=== PATIENT | male | born 1960 | race Caucasian/White ===

== ENCOUNTER 2018-03-01 09:10 | Emergency (ER) | payer OTHER, SELFPAY ==
[2018-03-01 09:11] VITALS: BP 153/96; PULSE 76; RESP 16; TEMP 36.6; O2SAT 95; BMI 26.4
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
[2018-03-01 09:43] LABS: Absolute Lymphocyte Count 1.25 X10^3/ul (0.83-4.51); Absolute Neutrophil Count 3.8 X10^3/uL (2.0-7.7); Basophil# 0.02 X10^3/uL; Basophil% 0.4 % (0-1); Eosinophil# 0.06 X10^3/uL; Eosinophils% 1.1 % (0-5); Hematocrit 43.6 % (40-54); Hemoglobin 14.6 g/dl (13.0-16.5); Lymphocyte # 1.25 X10^3/ul (4.0); Lymphocyte % 22.5 % (19-41); Mean Corp Hgb Conc 33.5 g/gl (32-36); Mean Corpuscular Hgb 29.1 pg (27.0-32.0); Mean Platelet Vol. 9.3 fl (6.2-12.0); Monocyte# 0.44 X10^3/uL; Monocyte% 7.9 % (0-10); Neutrophil # 3.76 X10^3/uL (2.7-7.7); Neutrophil % 67.7 % (47-70); Platelet Count 239 K/mm3 (150-450); RBC Distribution Width CV 12.1 % (11.6-14.6); RBC Distribution Width SD 38.1 fl (35.1-43.9); Red Blood Count 5.01 M/mm3 (4.6-6.2); White Blood Count 5.6 K/mm3 (4.4-11.0)
[2018-03-01 09:44] LABS: POSITIVE COUNT NO; POSITIVE DIFFERENTIAL NO; POSITIVE MORPHOLOGY NO
[2018-03-01 09:56] LABS: ALB/GLOB Ratio 1.1 RATIO (0.9-2.4); AST(SGOT) 22 U/L (15-37); Alanine Aminotransfer ALT/SGPT 46 U/L (16-61); Albumin, Serum 3.3 g/dL (3.2-5.0); Alkaline Phosphatase 85 U/L (45-117); Anion Gap 5 (5-15); BUN 18 mg/dL (7-18); BUN/Creat Ratio 18.5 RATIO (10-20); Calcium,Total 8.1 mg/dL (8.5-10.1); Chloride 109 mmol/L (98-107); Creatinine, Serum 0.97 mg/dL (0.70-1.30); EST Glomerular Filtration Rate 85 mL/min (>60); Est Glom Filt Rate - Afr Amer 102 mL/min (>60); Estimated Creatinine Clearance 92.22 ml/min; Globulin 3.1 g/dL (2.2-4.2); Glucose 111 mg/dL (74-106); Potassium 4.3 mmol/L (3.5-5.1); Protein, Total 6.4 g/dL (6.4-8.2); Sodium Level 141 mmol/L (136-145)
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
--- NOTE | 2018-03-01 10:06 | ED.RN ---
HOLDING MONITOR PLACEMENT FOR C-SPINE CLEARANCE, DR TUCKER.
[2018-03-01] MEDS: Ondansetron 4 MG/2 ML Vial IV (10:07)
[2018-03-01] MEDS: Morphine 4 MG/ML Syringe IV (10:07)
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
[2018-03-01 11:28] VITALS: BP 133/87; PULSE 69; RESP 16; O2SAT 97
--- NOTE | 2018-03-01 11:45 | NURSING ---
[place] [address] BED 11 REPORT [phone]
[2018-03-01 11:50] VITALS: BP 136/81; PULSE 72; RESP 11; O2SAT 99
--- NOTE | 2018-03-01 11:56 | NURSING ---
CALLED [facility] FOR TRANSPORT
[2018-03-01 12:42] VITALS: BP 133/77; PULSE 69; RESP 18; O2SAT 98
--- OUTSIDE RECORDS SUMMARY | 2018-04-26 13:34 | XMS RPT_ITS ---
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 severe left and moderate right-sided foraminal narrowing is noted. 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 There is superimposed degenerative disc disease at C3/C4 and C4/C5 which causes flattening of the ventral cord. Signal abnormality somewhat centrally within the cord, to the right and left and midline as detailed above, which may be related to the patient's recent traumatic event. These are at and slightly below levels of degenerative disc disease with significant central canal stenosis. Small amount of fluid anterior to the C3/C4 and C7/T1 vertebral bodies. Posterior paraspinal soft tissue edema is also present from C2 to C4. No acute fracture is demonstrated. Report Dictated on --- Final --- Dictated: 03/02/2018 12:45 pm Dictating Physician: MD ALVAREZ KRIKOR Signed Date and Time: 03/02/2018 1:10 pm Signed by: MD ALVAREZ KRIKOR Transcribed Date and Time: 03/02/2018 12:45 Xr Chest Portable Result Date: 03/02/2018 Patient Name: AYO BUNDY ---Diagnostic Radiology--- Exam Date/Time 03/02/2018 17:06:35 EST Exam CR Chest Portable Ordering Physician VANESA ROBLERO JULIE Accession Number [id number] CPT4 Codes 77762 () Reason For Exam pneumonia Report PORTABLE CHEST CLINICAL INDICATION: Pneumonia TECHNIQUE: Portable AP COMPARISON: None FINDINGS: No focal consolidation or pulmonary edema. No pleural effusions or pneumothorax. The cardiac and mediastinal silhouettes are normal. The osseous structures are unremarkable. IMPRESSION: No focal consolidation or pulmonary edema. Report Dictated on --- Final --- Dictated: 03/02/2018 5:21 pm Dictating Physician: MD CALDWELL KEVIN Signed Date and Time: 03/02/2018 5:29 pm Signed by: MD CALDWELL KEVIN Transcribed Date and Time: 03/02/2018 5:21 Vl Dup Lower Extremity Venous Bilateral Result Date: 03/05/2018 [facility] Lower Extremity Venous Duplex Report Patient Name: Ayo Bundy : 1960 Study Date: 03/05/2018 T (58yrs) Age: 58 Account: [id number] Gender: M Loc: 1332 BP: Ordering: Veena Earl Technologist: Ordering Physician: Veena Earl Ski Production Supervisor: Veena Nj RVT Interpreting Physician: Hema Aguilera MD Location: [facility] INDICATIONS: Edema. CONCLUSIONS 1. This is a normal study. IMPRESSIONS: - The superficial and deep systems of the bilateral lower extremities appear to be free of thrombus. - This is a normal study. STUDY DATA: Complete lower extremity venous duplex evaluation. Birthdate: Patient birthdate: 1960. Age: Patient is 58 yr old. Sex: Gender: male. Ethnicity: Ethnicity: white. Doppler flow study including spectral analysis, color and oliva scale imaging. Patient status: Inpatient. Procedure: A vascular evaluation was performed. The images were obtained using a Vysr E9 vascular ultrasound machine. The study was technically limited due to hardware and cast. VENOUS FLOW AND IMAGING: + + + + !Location !Overall !Flow properties ! + + + + !Right common femoral !Patent !Normal phasicity; spontaneous; ! ! ! !normal augmentation; ! ! !!compressible ! + + + + !Right saphenofemoral !Patent !Compressible ! !junction ! ! ! + + + + !Right profunda femoral !Patent !Normal phasicity; spontaneous; ! ! ! !normal augmentation ! + + + + !R femoral proximal !Patent !Compressible ! + + + + !R femoral mid !Patent !Normal phasicity; spontaneous; ! ! ! !normal augmentation; ! ! !!compressible ! + + + + !R femoral distal !Patent !Compressible ! + + + + !Right popliteal !Patent !Normal phasicity; spontaneous; ! ! ! !normal augmentation; ! ! !!compressible ! + + + + !Right gastrocnemius !Patent !Compressible ! + + + + !Right posterior tibial !Patent !Compressible ! + + + + !Right peroneal !Patent !Compressible ! + + + + !Right soleal !Patent !Compressible ! + + + + !Right greater saphenous !Patent !Compressible ! + + + + !Left common femoral !Patent !Normal phasicity; spontaneous; ! ! ! !normal augmentation; ! ! !!compressible ! + + + + !Left saphenofemoral junction!Patent !Compressible ! + + + + !Left profunda femoral !Patent !Normal phasicity; spontaneous; ! ! ! !normal augmentation ! + + + + !L femoral proximal !Patent !Compressible ! + + + + !L femoral mid !Patent !Normal phasicity; spontaneous; ! ! ! !normal augmentation; ! ! !!compressible ! + + + + !L femoral distal !Difficult ! ! ! !study ! ! + + + + !Left popliteal !Difficult ! ! ! !study ! ! + + + + !Left gastrocnemius !Difficult ! ! ! !study ! ! + + + + !Left posterior tibial !Difficult ! ! ! !study ! ! + + + + !Left peroneal !Difficult ! ! ! !study ! ! + + + + !Left soleal !Difficult ! ! ! !study ! ! + + + + !Left greater saphenous !Patent !Compressible ! + + + + Electronically signed by: Hema Aguilera MD [id number] Ct Lower Extremity Left Wo Contrast Result Date: 03/01/2018 Patient Name: AYO BUNDY ---CT--- Exam Date/Time 03/01/2018 21:06:[address] Low Ext w/o Contrast Left Ordering Physician ORA DODSON Accession Number [id number] CPT4 Codes 44083 () Reason For Exam evaluate for possible L distal femur fx. please include femur and knee. Report CT Low Ext w/o Contrast Left CLINICAL INDICATION: evaluate for possible L distal femur fx. please include femur and knee. TECHNIQUE: CT scan of the left femur without contrast. Multiplanar reformations. I personally generated 3-D reconstructions on a separate workstation. COMPARISON: X-ray from 03/01/2018 FINDINGS: There is an oblique fracture involving distal femoral shaft and femoral metadiaphysis. This is nondisplaced, and extends to the knee joint space, just lateral to the intercondylar notch. No significant joint space incongruity. Minor spurring of the patellofemoral joint. There is a moderate-sized hemarthrosis. Knee joint osteoarthrosis, severe in the medial compartment and mild to moderate in the lateral compartment. Mild patellofemoral spurring. IMPRESSION: 1. Distal femoral shaft fracture extending to the knee joint space. Knee joint hemarthrosis. 2. Knee joint osteoarthrosis, severe in the medial compartment and mild to moderate in the lateral compartment. Report Dictated on --- Final --- Dictated: 03/01/2018 9:27 pm Dictating Physician: MD LOPEZ JOHN R Signed Date and Time: 03/01/2018 9:33 pm Signed by: MD LOPEZ JOHN R Transcribed Date and Time: 03/01/2018 9:27 Xr Wrist Left 3 Vw Result Date: 03/01/2018 Patient Name: AYO BUNDY ---Diagnostic Radiology--- Exam Date/Time 03/01/2018 17:51:35 EST Exam CR Wrist Complete 3 Views Left Ordering Physician MD MCCARTY ADAM Accession Number [id number] CPT4 Codes 21399 () Reason For Exam pain Report LEFT HAND AND WRIST: CLINICAL INDICATION: Left hand and wrist pain. TECHNIQUE: PA, Lat, and oblique hand and PA, Lat and oblique wrist COMPARISON: None. FINDINGS: There is internal fixation of the distal radius with plate and screws. There is no acute fracture or dislocation. Carpal arcs are aligned. There are degenerative changes about the distal interphalangeal joints, first carpometacarpal joint, and radiocarpal joint. No bone lesion is identified. There is no soft tissue abnormality. IMPRESSION: Normal left hand and wrist Report Dictated on --- Final --- Dictated: 03/01/2018 5:57 pm Dictating Physician: MD CALDWELL KEVIN Signed Date and Time: 03/01/2018 5:59 pm Signed by: MD CALDWELL KEVIN Transcribed Date and Time: 03/01/2018 5:57 Xr Wrist Right 3 Vw Result Date: 03/01/2018 Patient Name: AYO BUNDY ---Diagnostic Radiology--- Exam Date/Time 03/01/2018 17:51:35 EST Exam CR Wrist Complete 3 Views Right Ordering Physician MD MCCARTY ADAM Accession Number [id number] CPT4 Codes 47986 () Reason For Exam pain Report RIGHT HAND AND WRIST: CLINICAL INDICATION: Right hand and wrist pain. TECHNIQUE: PA, Lat, and oblique hand and PA, Lat and oblique wrist COMPARISON: None. FINDINGS: There is no fracture or dislocation. Degenerative changes of the distal interphalangeal joints, first carpometacarpal joint, and radiocarpal joint. No bone lesion is identified. There is no soft tissue abnormality. Peripheral intravenous catheter noted. IMPRESSION: No fracture or dislocation. Report Dictated on --- Final --- Dictated: 03/01/2018 6:02 pm Dictating Physician: MD CALDWELL KEVIN Signed Date and Time: 03/01/2018 6:04 pm Signed by: MD CALDWELL KEVIN Transcribed Date and Time: 03/01/2018 6:02 Incidental Findings: none Pending Test Results and Tests to Obtain as Outpatient: PT/OT Bladder training at rehab Disposition: He was discharged to [facility] in stable condition on 03/07/2018. Discharge Medications: He did not have significant changes to their home medications (see below) Medication List START taking these medications aluminum & magnesium hydroxide-simethicone 200-200-20 MG/5ML Susp suspension Commonly known as: MAALOX Take 30 mLs by mouth every 6 hours as needed for Indigestion bisacodyl 10 MG suppository Commonly known as: DULCOLAX Place 1 suppository rectally daily as needed for Constipation diphenhydrAMINE-zinc acetate 1-0.1 % cream Commonly known as: BENADRYL Apply topically 3 times daily as needed. docusate 100 MG Caps Commonly known as: COLACE, DULCOLAX Take 100 mg by mouth 2 times daily enoxaparin 30 MG/0.3ML injection Commonly known as: LOVENOX Inject 0.3 mLs into the skin 2 times daily melatonin 1 MG tablet Take 1 tablet by mouth nightly as needed for Sleep methocarbamol 500 MG tablet Commonly known as: ROBAXIN Take 2 tablets by mouth 4 times daily for 10 days polyethylene glycol packet Commonly known as: GLYCOLAX Take 17 g by mouth daily senna 8.6 MG tablet Commonly known as: SENOKOT Take 1 tablet by mouth nightly simethicone 80 MG chewable tablet Commonly known as: MYLICON Take 1 tablet by mouth every 6 hours as needed for Flatulence tamsulosin 0.4 MG capsule Commonly known as: FLOMAX Take 1 capsule by mouth daily CHANGE how you take these medications lisinopril 10 MG tablet Commonly known as: PRINIVIL;ZESTRIL What changed: Another medication with the same name was removed. Continue taking this medication, and follow the directions you see here. ASK your doctor about these medications oxyCODONE 5 MG immediate release tablet Commonly known as: ROXICODONE Take 1 tablet by mouth every 6 hours as needed for Pain for up to 7 days.. Ask about: Should I take this medication? Where to Get Your Medications You can get these medications from any pharmacy Bring a paper prescription for each of these medications ? oxyCODONE 5 MG immediate release tablet Information about where to get these medications is not yet available Ask your nurse or doctor about these medications ? aluminum & magnesium hydroxide-simethicone 200-200-20 MG/5ML Susp suspension ? bisacodyl 10 MG suppository ? diphenhydrAMINE-zinc acetate 1-0.1 % cream ? docusate 100 MG Caps ? enoxaparin 30 MG/0.3ML injection ? melatonin 1 MG tablet ? methocarbamol 500 MG tablet ? polyethylene glycol packet ? senna 8.6 MG tablet ? simethicone 80 MG chewable tablet ? tamsulosin 0.4 MG capsule Discharge Condition: Physical Exam at the time of discharge: Please refer to the Progress note on day of discharge for a detailed exam. At the time of discharge the patient is stable. Discharge Instructions: Activity: no working or driving until follow up with [facility] Diet: regular diet Discharge needs: PT/OT The patient's OARRS report was obtained and reviewed by myself on 03/07/2018. Discharge Instructions Provided: You have been diagnosed with a concussion. Upon discharge you can expect post-concussion symptoms. These include but are not limited to: - Thinking/remembering - difficulty thinking clearly, remembering new info, and concentrating - Physical - headache, blurry vision, dizziness, sensitivity to light and noises, feeling tired, balance problems - Emotional, mood - irritability, sadness, emotional, nervous or anxiety - Sleep - sleeping more than usual, sleep less then usual, trouble falling asleep To feel better: - Get plenty of sleep at night, and take it easy during the day - Avoid physically demanding activities or those that require a lot of concentration - Do not drive, operate heavy equipment until cleared by your doctor - Do not drink alcohol While taking narcotic medications be sure to: Not operate heavy machinery Do not drive while taking narcotic medication Return to the emergency department if: You are very drowsy. Your speech is slurred. You have trouble thinking, remembering things, or focusing. Contact your healthcare provider if: You want help or information on how to stop using or abusing narcotics. Follow up with your healthcare provider as directed: Write down your questions so you remember to ask them during your visits. Narcotic intoxication usually lasts for several hours. You may have the following during or after you use narcotics: Behavior or mood changes, such as a great feeling followed by the feeling that you do not care about anyone or anything Trouble thinking, remembering things, or focusing Small pupils Feeling very drowsy Slurred speech Narcotic withdrawal occurs if you stop using narcotics after using them heavily over a period of time. Signs and symptoms may begin within minutes or days and continue for days or even months: Depression and anxiety Nausea or vomiting Muscle aches Watery eyes or runny nose Large pupils Sweating or goosebumps on your skin Diarrhea Fever Trouble sleeping No working or driving until follow up with Trauma Clinic. Attestation: I spent 57 minutes on pt discharge. GLUCOSE,BEDSIDE Collected: 03/07/2018 Status: F Source: [facility] 11:06 AM SYSTEM REPOSITORY TYPE CODE TESTS RESULT OUT OF RANGE REFERENCE UNITS LAB BGLU 70-100 mg/dL High 120 Glucose,Beds lilian Result Comment: Test performed by glucose meter. Results may be 10%-15% lower than serum/plasma values. (CLIA ID [id number]) Performed By: #### BGLU #### [facility] [address] [place] [phone] HEMOGRAM W/ AUTODIFF Collected: 03/07/2018 Status: F Source: [facility] AG 1:26 AM SYSTEM REPOSITORY TYPE CODE TESTS RESULT OUT OF REFERENCE UNITS RANGE LAB IWBC 3.6-10.7 10*3/uL WBC Normal 6.5 LAB RBC 4.40-5.90 10*6/uL RBC Normal 4.55 LAB HGB 13.0-18.0 g/dL Hemoglobin Normal 13.5 LAB HCT 40.0-52.0 % Low Hematocrit 39.2 LAB MCV 80.0-98.0 fL MCV Normal 86.2 LAB MCH 26.0-34.0 pg MCH Normal 29.7 LAB MCHC 32.0-36.0 % MCHC Normal 34.5 LAB RDW 11.5-14.5 % RDW Normal 12.5 LAB PLT 140-440 10*3/uL Platelet Normal 261 LAB MPV 7.4-10.4 fL Low MPV 7.0 LAB GRAN% 40.0-80.0 % Granulocytes Normal 69.3 LAB LYMP% 20.0-40.0 % Low Lymphocytes 19.3 LAB MONO% 2.0-10.0 % Monocytes Normal 8.9 LAB EOS% 1.0-6.0 % Eosinophils Normal 1.9 LAB BAS% 0.0-2.0 % Basophils Normal 0.6 LAB ANC 1.8-7.0 10*3/uL Abs Normal Neutrophile Cnt 4.5 LAB ALC 1.0-4.3 10*3/uL Abs Lymph Cnt Normal 1.3 LAB AMC 0.0-0.8 10*3/uL Abs Monocyte Normal Cnt 0.6 LAB AEC 0.0-0.5 10*3/uL Abs Eosin Cnt Normal 0.1 LAB ABC 0.0-0.2 10*3/uL Abs Baso Cnt Normal 0.0 Performed By: #### HEMDF #### [facility] [address] [place] [phone] HEMOGRAM W/ AUTODIFF Collected: 03/06/2018 Status: F Source: [facility] AG 4:29 AM SYSTEM REPOSITORY TYPE CODE TESTS RESULT OUT OF REFERENCE UNITS RANGE LAB IWBC 3.6-10.7 10*3/uL WBC Normal 5.5 LAB RBC 4.40-5.90 10*6/uL RBC Normal 4.57 LAB HGB 13.0-18.0 g/dL Hemoglobin Normal 13.6 LAB HCT 40.0-52.0 % Low Hematocrit 39.4 LAB MCV 80.0-98.0 fL MCV Normal 86.3 LAB MCH 26.0-34.0 pg MCH Normal 29.7 LAB MCHC 32.0-36.0 % MCHC Normal 34.4 LAB RDW 11.5-14.5 % RDW Normal 12.7 LAB PLT 140-440 10*3/uL Platelet Normal 277 LAB MPV 7.4-10.4 fL Low MPV 6.9 LAB GRAN% 40.0-80.0 % Granulocytes Normal 66.9 LAB LYMP% 20.0-40.0 % Lymphocytes Normal 21.0 LAB MONO% 2.0-10.0 % Monocytes Normal 9.2 LAB EOS% 1.0-6.0 % Eosinophils Normal 2.3 LAB BAS% 0.0-2.0 % Basophils Normal 0.6 LAB ANC 1.8-7.0 10*3/uL Abs Normal Neutrophile Cnt 3.7 LAB ALC 1.0-4.3 10*3/uL Abs Lymph Cnt Normal 1.1 LAB AMC 0.0-0.8 10*3/uL Abs Monocyte Normal Cnt 0.5 LAB AEC 0.0-0.5 10*3/uL Abs Eosin Cnt Normal 0.1 LAB ABC 0.0-0.2 10*3/uL Abs Baso Cnt Normal 0.0 Performed By: #### HEMDF #### [employer] [address] [id number] VL VENOUS DUPLEX US Observed: 03/05/2018 Status: F Source: [facility] AG LOWER EXT BILATERAL 7:07 AM SYSTEM REPOSITORY Patient Name: AYO BUNDY Ultrasound Exam Date/Time 03/05/2018 07:51:42 EST Exam VL Venous Duplex US Lower Ext Bilateral Ordering Physician VEENA EARL Accession Number [id number] CPT4 Codes 30335 () Reason For Exam edema Report [facility] --- Lower Extremity Venous Duplex Report Patient Name: Ayo Bundy : 1960 Study Date: 03/05/2018 T (58yrs) Age: 58 Account: [id number] Gender: M Loc: 1332 BP: Ordering: Veena Earl Technologist: Ordering Physician: Veena Earl Ski Production Supervisor: Veena Nj RVT Interpreting Physician: Hema Aguilera MD --- Location: [facility] --- INDICATIONS: Edema. --- CONCLUSIONS 1. This is a normal study. --- IMPRESSIONS: - The superficial and deep systems of the bilateral lower extremities appear to be free of thrombus. - This is a normal study. --- STUDY DATA: Complete lower extremity venous duplex evaluation. Birthdate: Patient birthdate: 1960. Age: Patient is 58 yr old. Sex: Gender: male. Ethnicity: Ethnicity: white. Doppler flow study including spectral analysis, color and oliva scale imaging. Patient status: Inpatient. Procedure: A vascular evaluation was performed. The images were obtained using a Vysr E9 vascular ultrasound machine. The study was technically limited due to hardware and cast. --- VENOUS FLOW AND IMAGING: + + + --+ !Location !Overall !Flow properties ! + + + --+ !Right common femoral !Patent !Normal phasicity; spontaneous; ! ! ! !normal augmentation; ! ! ! !compressible ! + + + --+ !Right saphenofemoral !Patent !Compressible ! !junction ! ! ! + + + --+ !Right profunda femoral !Patent !Normal phasicity; spontaneous; ! ! ! !normal augmentation ! + + + --+ !R femoral proximal !Patent !Compressible ! + + + --+ !R femoral mid !Patent !Normal phasicity; spontaneous; ! ! ! !normal augmentation; ! ! ! !compressible ! + + + --+ !R femoral distal !Patent !Compressible ! + + + --+ !Right popliteal !Patent !Normal phasicity; spontaneous; ! ! ! !normal augmentation; ! ! ! !compressible ! + + + --+ !Right gastrocnemius !Patent !Compressible ! + + + --+ !Right posterior tibial !Patent !Compressible ! + + + --+ !Right peroneal !Patent !Compressible ! + + + --+ !Right soleal !Patent !Compressible ! + + + --+ !Right greater saphenous !Patent !Compressible ! + + + --+ !Left common femoral !Patent !Normal phasicity; spontaneous; ! ! ! !normal augmentation; ! ! ! !compressible ! + + + --+ !Left saphenofemoral junction!Patent !Compressible ! + + + --+ !Left profunda femoral !Patent !Normal phasicity; spontaneous; ! ! ! !normal augmentation ! + + + --+ !L femoral proximal !Patent !Compressible ! + + + --+ !L femoral mid !Patent !Normal phasicity; spontaneous; ! ! ! !normal augmentation; ! ! ! !compressible ! + + + --+ !L femoral distal !Difficult ! --! ! !study ! ! + + + --+ !Left popliteal !Difficult ! --! ! !study ! ! + + + --+ !Left gastrocnemius !Difficult ! --! ! !study ! ! + + + --+ !Left posterior tibial !Difficult ! --! ! !study ! ! + + + --+ !Left peroneal !Difficult ! --! ! !study ! ! + + + --+ !Left soleal !Difficult ! --! ! !study ! ! + + + --+ !Left greater saphenous !Patent !Compressible ! + + + --+ Electronically signed by: Hema Aguilera MD [id number] Final Dictated: 03/05/2018 8:32 am Dictating Physician: HEMA AGUILERA Signed Date and Time: 03/05/2018 8:31 am Signed by: HEMA AGUILERA HEMOGRAM W/ AUTODIFF Collected: 03/05/2018 Status: F Source: [facility] AG 1:19 AM SYSTEM REPOSITORY TYPE CODE TESTS RESULT OUT OF REFERENCE UNITS RANGE LAB IWBC 3.6-10.7 10*3/uL WBC Normal 5.1 LAB RBC 4.40-5.90 10*6/uL Low RBC 4.33 LAB HGB 13.0-18.0 g/dL Low Hemoglobin 12.9 LAB HCT 40.0-52.0 % Low Hematocrit 37.3 LAB MCV 80.0-98.0 fL MCV Normal 86.2 LAB MCH 26.0-34.0 pg MCH Normal 29.8 LAB MCHC 32.0-36.0 % MCHC Normal 34.6 LAB RDW 11.5-14.5 % RDW Normal 12.5 LAB PLT 140-440 10*3/uL Platelet Normal 236 LAB MPV 7.4-10.4 fL Low MPV 7.3 LAB GRAN% 40.0-80.0 % Granulocytes Normal 64.7 LAB LYMP% 20.0-40.0 % Lymphocytes Normal 23.4 LAB MONO% 2.0-10.0 % Monocytes Normal 9.3 LAB EOS% 1.0-6.0 % Eosinophils Normal 1.9 LAB BAS% 0.0-2.0 % Basophils Normal 0.7 LAB ANC 1.8-7.0 10*3/uL Abs Normal Neutrophile Cnt 3.3 LAB ALC 1.0-4.3 10*3/uL Abs Lymph Cnt Normal 1.2 LAB AMC 0.0-0.8 10*3/uL Abs Monocyte Normal Cnt 0.5 LAB AEC 0.0-0.5 10*3/uL Abs Eosin Cnt Normal 0.1 LAB ABC 0.0-0.2 10*3/uL Abs Baso Cnt Normal 0.0 Performed By: #### HEMDF #### [facility] [address] [place] [phone] Observed: 03/04/2018 Status: F Source: [facility] CULTURE URINE 11:22 AM SYSTEM REPOSITORY Order Comment: Specimen Source Comment:Urine, clean catch CULTURE URINE --> Status: F No growth (<1,000 CFU/ml). Performed By: #### C/UR #### [facility] [address] [phone] HEMOGRAM W/ AUTODIFF Collected: 03/04/2018 Status: F Source: [facility] AG 2:28 AM SYSTEM REPOSITORY TYPE CODE TESTS RESULT OUT OF REFERENCE UNITS RANGE LAB IWBC 3.6-10.7 10*3/uL WBC Normal 5.9 LAB RBC 4.40-5.90 10*6/uL RBC Normal 4.45 LAB HGB 13.0-18.0 g/dL Hemoglobin Normal 13.3 LAB HCT 40.0-52.0 % Low Hematocrit 38.2 LAB MCV 80.0-98.0 fL MCV Normal 85.9 LAB MCH 26.0-34.0 pg MCH Normal 29.8 LAB MCHC 32.0-36.0 % MCHC Normal 34.7 LAB RDW 11.5-14.5 % RDW Normal 12.6 LAB PLT 140-440 10*3/uL Platelet Normal 207 LAB MPV 7.4-10.4 fL MPV Normal 7.6 LAB GRAN% 40.0-80.0 % Granulocytes Normal 74.2 LAB LYMP% 20.0-40.0 % Low Lymphocytes 16.4 LAB MONO% 2.0-10.0 % Monocytes Normal 7.5 LAB EOS% 1.0-6.0 % Eosinophils Normal 1.4 LAB BAS% 0.0-2.0 % Basophils Normal 0.5 LAB ANC 1.8-7.0 10*3/uL Abs Normal Neutrophile Cnt 4.3 LAB ALC 1.0-4.3 10*3/uL Abs Lymph Cnt Normal 1.0 LAB AMC 0.0-0.8 10*3/uL Abs Monocyte Normal Cnt 0.4 LAB AEC 0.0-0.5 10*3/uL Abs Eosin Cnt Normal 0.1 LAB ABC 0.0-0.2 10*3/uL Abs Baso Cnt Normal 0.0 Performed By: #### HEMDF, BMP3 #### [facility] [address] [place] [phone] BASIC METABOLIC PANEL Collected: 03/04/2018 Status: F Source: [facility] AG 2:28 AM SYSTEM REPOSITORY TYPE CODE TESTS RESULT OUT OF RANGE REFERENCE UNITS LAB NA3 137-145 mmol/L Sodium Normal 137 LAB K3 3.5-5.1 mmol/L Normal Potassium 3.9 LAB CL3 98-107 mmol/L Chloride Normal 102 LAB CO23 22-30 mmol/L Carbon Normal Dioxide 28 LAB ANIN3 NA Anion Gap 7 LAB GLUC3 70-100 mg/dL High Glucose 130 LAB BUN3 7-20 mg/dL Urea Normal Nitrogen 17 LAB CRET3 0.52-1.25 mg/dL Normal Creatinine 0.89 LAB GF3BR >60 mL/min eGFR > 60.0 LAB GF3WR >60 mL/min eGFR OTHER > 60.0 Result Comment: Source- MDRD equation with creatinine calibration to IDMS(NKDEP) eGFR not recommended for drug dose adjustment LAB CA3 8.4-10.4 mg/dL Low Calcium 8.2 Performed By: #### HEMDF, BMP3 #### [employer] [facility] System [address] [place] [id number] CR CHEST PORTABLE Observed: 03/02/2018 Status: F Source: [facility] 5:21 PM SYSTEM REPOSITORY Patient Name: AYO BUNDY Diagnostic Radiology Exam Date/Time 03/02/2018 17:06:35 EST Exam CR Chest Portable Ordering Physician VANESA ROBLERO JULIE Accession Number [id number] CPT4 Codes 30630 () Reason For Exam pneumonia Report PORTABLE CHEST CLINICAL INDICATION: Pneumonia TECHNIQUE: Portable AP COMPARISON: None FINDINGS: No focal consolidation or pulmonary edema. No pleural effusions or pneumothorax. The cardiac and mediastinal silhouettes are normal. The osseous structures are unremarkable. IMPRESSION: No focal consolidation or pulmonary edema. Report Dictated on Final Dictated: 03/02/2018 5:21 pm Dictating Physician: MD CALDWELL KEVIN Signed Date and Time: 03/02/2018 5:29 pm Signed by: MD CALDWELL KEVIN Transcribed Date and Time: 03/02/2018 5:21 MRI SPINE CERVICAL Observed: 03/02/2018 Status: F Source: [facility] W/O CONTRAST 12:45 PM SYSTEM REPOSITORY Patient Name: AYO BUNDY MRI Exam Date/Time 03/02/2018 12:23:21 EST Exam MRI Spine Cervical w/o Contrast Ordering Physician MD MCCARTY ADAM Accession Number [id number] CPT4 Codes 27374 () Reason For Exam central cord Report Examination: MRI cervical spine Indication: central cord Technique: Multiplanar multi-sequence MRI images of the cervical spine were obtained. Findings: Mild focal increased T2 signal is present within the central portion of the cord to the right and left and midline as demonstrated on axial image 13 of series 9. This is present just below the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
== END 2018-03-01 12:47 | disposition short-term general hospital (02) ==
PROVIDERS: Emergency Provider Emergency Medicine; Family Provider Family Medicine; PCP Family Medicine
DX: S14.109A Unspecified injury at unspecified level of cervical spinal cord, initial encounter (principal); S72.402A Unspecified fracture of lower end of left femur, initial encounter for closed fracture; R20.2 Paresthesia of skin; M25.571 Pain in right ankle and joints of right foot; M25.562 Pain in left knee; V43.52XA Car driver injured in collision with other type car in traffic accident, initial encounter; Y93.9 Activity, unspecified; Y92.9 Unspecified place or not applicable; Y99.9 Unspecified external cause status; I10 Essential (primary) hypertension; Z79.899 Other long term (current) drug therapy
CPT/HCPCS: 70450; 71260; 72125; 73552; 73560; 73610; 80053; 85025; 96374; 96375; 99285; Q9967; A4216; J2405

== ENCOUNTER 2018-03-07 17:20 | Inpatient (IN) | payer OTHER, SELFPAY ==
[2018-03-07 17:20] VITALS: BP 133/81; PULSE 85; RESP 18; TEMP 36.7; O2SAT 95
[2018-03-07 17:31] VITALS: BMI 26.0
--- NOTE | 2018-03-07 18:37 | NURSING ---
Patient aware he is a fall risk and must ask for staff assist and verbalized understanding.
[2018-03-07 20:05] VITALS: BP 130/80; PULSE 83; RESP 12; TEMP 37; O2SAT 94
[2018-03-07] MEDS: fentaNYL 25 MCG Patch TRANSDERM. (20:07)
[2018-03-07] MEDS: Polyethylene Glycol 3350 17 GM PACKET PO (21:29)
[2018-03-07] MEDS: Methocarbamol 500 MG Tablet 1000 MG PO (21:29)
[2018-03-07] MEDS: Acetaminophen 500 MG Tablet 1000 MG PO (21:29)
[2018-03-08] MEDS: oxyCODONE 5 MG Tablet PO ×2 (02:49→07:24)
[2018-03-08] MEDS: Acetaminophen 500 MG Tablet 1000 MG PO ×3 (05:11→22:40)
[2018-03-08] MEDS: Enoxaparin 40 MG/0.4 ML Syringe SC (05:12)
[2018-03-08] MEDS: Magnesium Hydroxide 30 ML UDC PO (05:13)
[2018-03-08 05:38] LABS: Hematocrit 40.4 % (40-54); Hemoglobin 13.5 g/dl (13.0-16.5); Mean Corp Hgb Conc 33.4 g/gl (32-36); Mean Corpuscular Hgb 29.5 pg (27.0-32.0); Mean Corpuscular Volume 88.2 fL (80-94); Mean Platelet Vol. 8.9 fl (6.2-12.0); Platelet Count 283 K/mm3 (150-450); RBC Distribution Width SD 37.9 fl (35.1-43.9); Red Blood Count 4.58 M/mm3 (4.6-6.2); White Blood Count 5.8 K/mm3 (4.4-11.0)
[2018-03-08 05:51] LABS: Scan Indicated on CBC? Y/N NO
[2018-03-08 05:57] LABS: ALB/GLOB Ratio 0.8 RATIO (0.9-2.4); AST(SGOT) 67 U/L (15-37); Alanine Aminotransfer ALT/SGPT 135 U/L (16-61); Alkaline Phosphatase 93 U/L (45-117); Anion Gap 8 (5-15); BUN 26 mg/dL (7-18); BUN/Creat Ratio 26.3 RATIO (10-20); Calcium,Total 8.4 mg/dL (8.5-10.1); Chloride 104 mmol/L (98-107); Creatinine, Serum 0.99 mg/dL (0.70-1.30); EST Glomerular Filtration Rate 83 mL/min (>60); Est Glom Filt Rate - Afr Amer 100 mL/min (>60); Estimated Creatinine Clearance 90.36 ml/min; Globulin 3.6 g/dL (2.2-4.2); Glucose 95 mg/dL (74-106); Magnesium 2.4 mg/dL (1.6-2.6); Phosphorus 3.9 mg/dL (2.5-4.9); Potassium 4.3 mmol/L (3.5-5.1); Protein, Total 6.6 g/dL (6.4-8.2); Sodium Level 139 mmol/L (136-145)
[2018-03-08 06:50] VITALS: O2SAT 91
[2018-03-08 08:11] VITALS: BP 116/63; PULSE 75; RESP 20; TEMP 36.8; O2SAT 95
--- NOTE | 2018-03-08 10:19 | NS ---
Pt would prefer Ensure Enlive strawberry flavor
[2018-03-08] MEDS: Polyethylene Glycol 3350 17 GM PACKET PO (10:43)
[2018-03-08] MEDS: Senna/Docusate Sodium 1 Tablet 2 TABLET PO (10:43)
[2018-03-08] MEDS: Lisinopril 10 MG Tablet PO (10:44)
[2018-03-08] MEDS: Methocarbamol 500 MG Tablet 1000 MG PO ×4 (10:44→22:40)
[2018-03-08] MEDS: Tamsulosin HCl 0.4 MG Capsule PO (10:44)
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
--- NOTE | 2018-03-08 12:27 | NURSING ---
pt awakened for lunch. stated, oh man i didnt expect to be this tired. denies any needs at this time. utensil foam placed and pt set up for lunch.
--- NOTE | 2018-03-08 13:26 | CASEMGMT ---
SW reviewed psychosocial assessment completed by Moe Deleon, student social work therapist. ANGLE Beckman
--- NOTE | 2018-03-08 14:06 | PCM.RU.PYE ---
Admission Information Status Changes from Prescreening?: No changes Identified Actual Problem List:: Mobility Impaired, Self Care Deficit Potential Problem List:: DVT, Bleeding, Infection, UTI, Aspiration, Falls, Skin Integrity, Depression Risk of Complications DVT: LMWH, SHUN Hose, Sequential Compression Device Bleeding: Monitor Lab Values, Nursing to Teach Precautions for anti-coagulation therapy., Wound, if applicable, to be assessed every shift., Stroke patients assessed for lethargy or change in status. Infection: Clinical Staff to Monitor for S/S of infection:, S/S of infection include fever, redness, warmth, etc. Urinary Tract Infection: Monitor for frequency, burning, discomfort, or incontinence., Nursing will obtain urine sample for urinalysis and C&S when ordered. Aspiration: Clinical staff will monitor for coughing, drooling, congestion., Speech will evaluate swallowing and dsyphasia., Nursing will monitor patient swallowing during meals. Falls: Patient will be evaluated for Fall Precautions, Patient will be placed on Fall Precautions as indicated per protocol. Skin Breakdown: Nursing will assess skin daily using assessment tool., Nursing will place on Skin Breakdown Precautions as indicated. Pain: Clinical staff will assess patient's pain level per protocol., Medications will be given, if needed, and the pain level reassessed., Other methods: Massage, distraction, decrease stimulus, etc. used PRN. Plan of Care Patient requires physician specializing in physical medicine and rehab oversight to provide close medical supervision of rehab issues including: Pain Management, Sleep Problems, Bowel and Bladder, Medical and co-morbidity Management, DVT prophylaxis, Rehabilitation Leadership, Coordination of treatment team Patient needs Physical Therapy: For a minimum of 1 hour, At least 5 out of 7 days Patient needs Physical Therapy to improve:: Mobility, Mobility, Mobility, Strengthening, Transfers, Stretching, ROM, Endurance, Stairs, Gait, Balance Patient needs Occupational Therapy: For a minimum of 1 hour, At least 5 out of 7 days Patient needs Occupational Therapy to improve ADL's incl.: Eating, Grooming, Bathing, Dressing, Toileting, Toilet transfers, Community Reintegration, Higher functioning activities, Household tasks, Adaptive Equipment, Splinting, Other activities as determined Patient requires 24/7 Rehabilitation Nursing for: Pain Issues, Identifying and preventing risk factors, Monitoring and reporting current medical conditions, Assisting with ambulation, transfer, and all ADL's, Teaching patients about disease process and medications, Family teaching, Providing safe environment, Bowel and Bladder Issues, Skin integrity, Medication Management Patient needs Assistant Portfolio Manager/ Case Management for: Discharge Planning, Arranging Home Equipment or Services, Family Interventions Patient needs Dietary and Nutrition Services for: Adequate Nutrition, Nutritional Supplements, Nutritional Education Goals Patient will remain: free from falls, or injury at time of discharge. Patient will perform bed mobility at: MOD I level of assist. Patient will complete transfers from bed to chair at: MOD I level of assist. Patient will ambulate: 100 feet, with MOD I assist, with LRD Patient will complete upper body dressing at: MOD I level of assist. Patient will complete lower body dressing at: MOD I level of assist. Patient will complete toileting at: MOD I level of assist. Patient will perform bathing at: MOD I level of assist. Patient will complete grooming at: MOD I level of assist. Patient will complete home management skills at: MOD I level of assist. Patient will achieve: 12 stairs, at MOD I assist Patient will have pain level of: of 3 or less Patient's skin will: remain intact, free from infection. Patient will receive: adequate nutrition. Discharge Planning Pt Prognosis for Sig. Practical Improv. w/in Reasonable Time: Good Estimated Length of stay (days): 16 Anticipated D/C Destination: Home Was Preadmission Assessment Accurate?: Yes
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
[2018-03-08 22:00] VITALS: BP 115/72; PULSE 77; RESP 17; TEMP 36.8; O2SAT 96
[2018-03-09] MEDS: Acetaminophen 500 MG Tablet 1000 MG PO ×3 (05:58→20:26)
[2018-03-09] MEDS: Enoxaparin 40 MG/0.4 ML Syringe SC (06:01)
[2018-03-09 07:00] VITALS: BP 118/68; PULSE 80; RESP 18; TEMP 36.7; O2SAT 96
[2018-03-09 07:14] VITALS: O2SAT 92
[2018-03-09] MEDS: oxyCODONE 5 MG Tablet PO (08:00)
[2018-03-09] MEDS: Methocarbamol 500 MG Tablet 1000 MG PO ×4 (09:10→20:26)
[2018-03-09] MEDS: Polyethylene Glycol 3350 17 GM PACKET PO ×2 (09:11→20:26)
[2018-03-09] MEDS: Tamsulosin HCl 0.4 MG Capsule PO (09:12)
[2018-03-09] MEDS: Lisinopril 10 MG Tablet PO (09:12)
[2018-03-09] MEDS: Senna/Docusate Sodium 1 Tablet 2 TABLET PO (09:13)
[2018-03-09 19:55] VITALS: BP 114/71; PULSE 85; RESP 16; TEMP 36.9
--- NOTE | 2018-03-09 20:23 | NURSING ---
c/o full bladder (even with lópez cath). Scanned for 517. Rerouted tubing, changed cath secure, lópez now draining adequately. PT states it feels better
[2018-03-10] MEDS: oxyCODONE 5 MG Tablet PO (05:15)
[2018-03-10] MEDS: Enoxaparin 40 MG/0.4 ML Syringe SC (05:15)
[2018-03-10] MEDS: Acetaminophen 500 MG Tablet 1000 MG PO ×3 (06:11→21:16)
[2018-03-10 07:53] VITALS: BP 126/70; PULSE 76; RESP 16; TEMP 36.8; O2SAT 95
[2018-03-10] MEDS: Lisinopril 10 MG Tablet PO (08:59)
[2018-03-10] MEDS: Senna/Docusate Sodium 1 Tablet 2 TABLET PO (08:59)
[2018-03-10] MEDS: Tamsulosin HCl 0.4 MG Capsule PO (08:59)
[2018-03-10] MEDS: Methocarbamol 500 MG Tablet 1000 MG PO ×4 (10:39→21:17)
[2018-03-10 21:09] VITALS: BP 118/60; PULSE 79; RESP 16; TEMP 36.6; O2SAT 98
[2018-03-10] MEDS: fentaNYL 25 MCG Patch TRANSDERM. (21:17)
[2018-03-11] MEDS: Enoxaparin 40 MG/0.4 ML Syringe SC (07:13)
[2018-03-11] MEDS: Acetaminophen 500 MG Tablet 1000 MG PO ×3 (07:14→20:50)
[2018-03-11 07:39] VITALS: BP 137/74; PULSE 74; RESP 14; TEMP 36.8; O2SAT 96
[2018-03-11] MEDS: Lisinopril 10 MG Tablet PO (08:53)
[2018-03-11] MEDS: Tamsulosin HCl 0.4 MG Capsule PO (08:53)
[2018-03-11] MEDS: Methocarbamol 500 MG Tablet 1000 MG PO ×4 (08:54→20:50)
[2018-03-11] MEDS: Senna/Docusate Sodium 1 Tablet 2 TABLET PO (08:55)
[2018-03-11 20:35] VITALS: BP 114/63; PULSE 82; RESP 12; TEMP 36.8; O2SAT 96
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
[2018-03-12] MEDS: Acetaminophen 500 MG Tablet 1000 MG PO ×3 (06:57→21:59)
[2018-03-12] MEDS: Enoxaparin 40 MG/0.4 ML Syringe SC (06:58)
[2018-03-12 07:50] VITALS: BP 139/78; PULSE 72; RESP 12; TEMP 36.6; O2SAT 97
[2018-03-12] MEDS: Tamsulosin HCl 0.4 MG Capsule PO (09:18)
[2018-03-12] MEDS: Lisinopril 10 MG Tablet PO (09:18)
[2018-03-12] MEDS: Methocarbamol 500 MG Tablet 1000 MG PO ×4 (09:18→21:59)
[2018-03-12] MEDS: Senna/Docusate Sodium 1 Tablet 2 TABLET PO (09:18)
--- NOTE | 2018-03-12 09:50 | CASEMGMT ---
Team meeting held. Patent present, no support person present at this time. Patient reporting to be able to update family/significant other. Patient plans to discharge to home with girlfriend at time of discharge. Patient reporting that patient girlfriend will not be able to provide 24hr care but that patient's girlfriends mother has offered to assist during the day when patient girlfriend is at work. Patient currently requiring more assistance then what could be met at home and plans to continue with further care and treatment. Plan is to re-team patient next week. Patient aware that insurance update is due on 03/13/18 and that continued stay approval is not guaranteed at this time. Support given. Will continue to follow. Vanessa Prescott, CONSTRUCTION COST ESTIMATOR, SENIOR CORPORATE RECRUITER
--- NOTE | 2018-03-12 13:59 | PCM.PN.NEU ---
Subjective: Staffed in team meeting. Family was not at bedside, questions answered. With Physical therapy, he is moderate assist for transfers getting in and out of bed, needing assistance with trunk control. With the sliding board he requires moderate assistance. He is able to go 50 feet using the wheelchair. He is moderate assist with standing in the parallel bars, and he is unable to hop using the bars 2/2 left hip fracture. With Occupational therapy,he has weak grasp in his hands and requires total assistance with getting his clothes on. With grooming he is setup, along with eating he is set up. He does require help with opening items. With Nursing, the Khan is still in place, will be d/c on Wednesday 03/14, his muscle spasms have improved and pain is well controlled. Will re-team him again on 03/19. - Physical Exam General: Alert, Oriented x3, Cooperative HEENT: Atraumatic, PERRLA, EOMI, Normocephalic Neck: Supple, No JVD, Negative Carotid Bruits Lungs: Clear to auscultation, Normal air movement Cardiovascular: Regular rate, No murmurs Abdomen: Bowel Sounds Present, Soft, Non Tender Extremities: No edema, Capillary Refill Less than 3 Seconds Skin: No rashes, No breakdown Musculoskeletal: No Tenderness to Palpation of Joints or Extremities Neurological: Cranial nerves II-XII grossly intact Psych/Mental Status: Normal Affect, Appropriate, Alert and oriented to time, place, person, mood and affect Vital Signs Temp Pulse Resp BP Pulse Ox 97.8 F 72 12 139/78 H 97 03/12/18 07:50 03/12/18 07:50 03/12/18 07:50 03/12/18 07:50 03/12/18 07:50 Oxygen Delivery Method Room Air Weight: 87.09 kg Body Mass Index (BMI) 26.0 Intake and Output for Last 24 Hours 03/10/18 03/11/18 03/12/18 23:59 23:59 23:59 Intake Total 700 / 700 1420 / 1420 550 / 550 Output Total 1250 / 1250 1950 / 1950 1150 / 1150 Balance -550 / -550 -530 / -530 -600 / -600 Active Medications Acetaminophen (Tylenol) 1,000 mg PO TID [facility] Last Admin: 03/12/18 13:35 Dose: 1,000 mg Al Hydroxide/Mg Hydroxide (Mylanta Ii) 30 ml PO Q6H PRN PRN PRN Reason: INDIGESTION Bisacodyl (Dulcolax) 10 mg RECTAL .PRN X 1 PRN PRN Reason: Constipation Enoxaparin Sodium (Lovenox) 40 mg SC DAILY@0600 [facility] Last Admin: 03/12/18 06:58 Dose: 40 mg Fentanyl (Duragesic Patch) 25 mcg TRANSDERM. Q3D [facility] Last Admin: 03/10/18 21:17 Dose: 25 mcg Lisinopril (Zestril) 10 mg PO DAILY [facility] Last Admin: 03/12/18 09:18 Dose: 10 mg Magnesium Hydroxide (Milk Of Magnesia) 30 ml PO .PRN X 1 PRN PRN Reason: Constipation Last Admin: 03/08/18 05:13 Dose: 30 ml Methocarbamol (Robaxin) 1,000 mg PO 4X/DAY [facility] Last Admin: 03/12/18 13:35 Dose: 1,000 mg Nutritional Formula (Lactose Free) (Ensure Clear) 120 ml PO 4X/DAY [facility] Last Admin: 03/12/18 13:35 Dose: Not Given Oxycodone HCl (Oxyir) 5 - 10 mg PO Q4H PRN PRN PRN Reason: PAIN Last Admin: 03/10/18 05:15 Dose: 10 mg Polyethylene Glycol (Miralax) 17 gm PO BID [facility] Last Admin: 03/12/18 09:17 Dose: Not Given Senna/Docusate Sodium (Senokot-S, Soha-Colace) 2 tablet PO DAILY [facility] Last Admin: 03/12/18 09:18 Dose: 2 tablet Tamsulosin HCl (Flomax) 0.4 mg PO DAILY [facility] Last Admin: 03/12/18 09:18 Dose: 0.4 mg Medical Necessity - Tobacco Use Smoking Status: Never smoker Assessment/Plan Debility 2/2 central cord syndrome, and a Left femur fracture. Goal of rehab is yazidi of prior level of functional independence. Plan: - Physical therapy for gait and balance - Occupational Therapy for ADLs - As needed analgesics - Bowel protocol - DVT prophylaxis: Lovenox, SCD on right leg only - HLD - Currently not on medication - HTN - stable => continue home medications of lisinopril - Left femur fracture - Maintain knee immobilizer at all times. - Urine retention, failed voiding trail at OSH transferred to [facility] with Khan in place. Remove per admission orders with voiding trial x 2 weeks. - Central Cord syndrome - maintain [place] J collar at all times
--- NOTE | 2018-03-12 14:11 | PN.NEURO_ITS ---
Subjective: Staffed in team meeting. Family was not at bedside, questions answered. With Physical therapy, he is moderate assist for transfers getting in and out of bed, needing assistance with trunk control. With the sliding board he requires moderate assistance. He is able to go 50 feet using the wheelchair. He is moderate assist with standing in the parallel bars, and he is unable to hop using the bars 2/2 left hip fracture. With Occupational therapy,he has weak grasp in his hands and requires total assistance with getting his clothes on. With grooming he is setup, along with eating he is set up. He does require help with opening items. With Nursing, the Khan is still in place, will be d/c on Wednesday 03/14, his muscle spasms have improved and pain is well controlled. Will re-team him again on 03/19. - Physical Exam General: Alert, Oriented x3, Cooperative HEENT: Atraumatic, PERRLA, EOMI, Normocephalic Neck: Supple, No JVD, Negative Carotid Bruits Lungs: Clear to auscultation, Normal air movement Cardiovascular: Regular rate, No murmurs Abdomen: Bowel Sounds Present, Soft, Non Tender Extremities: No edema, Capillary Refill Less than 3 Seconds Skin: No rashes, No breakdown Musculoskeletal: No Tenderness to Palpation of Joints or Extremities Neurological: Cranial nerves II-XII grossly intact Psych/Mental Status: Normal Affect, Appropriate, Alert and oriented to time, place, person, mood and affect Vital Signs Temp Pulse Resp BP Pulse Ox 97.8 F 72 12 139/78 H 97 03/12/18 07:50 03/12/18 07:50 03/12/18 07:50 03/12/18 07:50 03/12/18 07:50 Oxygen Delivery Method Room Air Weight: 87.09 kg Body Mass Index (BMI) 26.0 Intake and Output for Last 24 Hours 03/10/18 03/11/18 03/12/18 23:59 23:59 23:59 Intake Total 700 / 700 1420 / 1420 550 / 550 Output Total 1250 / 1250 1950 / 1950 1150 / 1150 Balance -550 / -550 -530 / -530 -600 / -600 Active Medications Acetaminophen (Tylenol) 1,000 mg PO TID [facility] Last Admin: 03/12/18 13:35 Dose: 1,000 mg Al Hydroxide/Mg Hydroxide (Mylanta Ii) 30 ml PO Q6H PRN PRN PRN Reason: INDIGESTION Bisacodyl (Dulcolax) 10 mg RECTAL .PRN X 1 PRN PRN Reason: Constipation Enoxaparin Sodium (Lovenox) 40 mg SC DAILY@0600 [facility] Last Admin: 03/12/18 06:58 Dose: 40 mg Fentanyl (Duragesic Patch) 25 mcg TRANSDERM. Q3D [facility] Last Admin: 03/10/18 21:17 Dose: 25 mcg Lisinopril (Zestril) 10 mg PO DAILY [facility] Last Admin: 03/12/18 09:18 Dose: 10 mg Magnesium Hydroxide (Milk Of Magnesia) 30 ml PO .PRN X 1 PRN PRN Reason: Constipation Last Admin: 03/08/18 05:13 Dose: 30 ml Methocarbamol (Robaxin) 1,000 mg PO 4X/DAY [facility] Last Admin: 03/12/18 13:35 Dose: 1,000 mg Nutritional Formula (Lactose Free) (Ensure Clear) 120 ml PO 4X/DAY [facility] Last Admin: 03/12/18 13:35 Dose: Not Given Oxycodone HCl (Oxyir) 5 - 10 mg PO Q4H PRN PRN PRN Reason: PAIN Last Admin: 03/10/18 05:15 Dose: 10 mg Polyethylene Glycol (Miralax) 17 gm PO BID [facility] Last Admin: 03/12/18 09:17 Dose: Not Given Senna/Docusate Sodium (Senokot-S, Soha-Colace) 2 tablet PO DAILY [facility] Last Admin: 03/12/18 09:18 Dose: 2 tablet Tamsulosin HCl (Flomax) 0.4 mg PO DAILY [facility] Last Admin: 03/12/18 09:18 Dose: 0.4 mg Medical Necessity - Tobacco Use Smoking Status: Never smoker Assessment/Plan Debility 2/2 central cord syndrome, and a Left femur fracture. Goal of rehab is restorationist of prior level of functional independence. Plan: - Physical therapy for gait and balance - Occupational Therapy for ADLs - As needed analgesics - Bowel protocol - DVT prophylaxis: Lovenox, SCD on right leg only - HLD - Currently not on medication - HTN - stable => continue home medications of lisinopril - Left femur fracture - Maintain knee immobilizer at all times. - Urine retention, failed voiding trail at OSH transferred to [facility] with Khan in place. Remove per admission orders with voiding trial x 2 weeks. - Central Cord syndrome - maintain [place] J collar at all times
--- NOTE | 2018-03-12 16:42 | PCM.PN.HOSP ---
Subjective: Tired after therapy today. No new complaints. Vitals/I&O's: Vital Signs Temp Pulse Resp BP Pulse Ox 36.6 C 72 12 139/78 H 97 03/12/18 07:50 03/12/18 07:50 03/12/18 07:50 03/12/18 07:50 03/12/18 07:50 Oxygen Delivery Method Room Air Weight: 87.09 kg Body Mass Index (BMI) 26.0 Intake and Output for Last 24 Hours 03/10/18 03/11/18 03/12/18 23:59 23:59 23:59 Intake Total 700 / 700 1420 / 1420 550 / 550 Output Total 1250 / 1250 1950 / 1950 1150 / 1150 Balance -550 / -550 -530 / -530 -600 / -600 General: Alert, Cooperative, No apparent distress HEENT: Atraumatic, Normocephalic Neck: - - hard collar in place. Lungs: Clear to auscultation, Normal air movement, No rhonchi, No wheeze Cardiovascular: Regular rate, Regular Rhythm, Normal S1, Normal S2, No murmurs Abdomen: Bowel Sounds Present, Soft, Non Tender, Non-Distended, No Hepato-splenomegaly Extremities: No edema, No Calf Tenderness Psych/Mental Status: Normal Affect, Appropriate Current Medications Acetaminophen (Tylenol) 1,000 mg PO TID [facility] Last Admin: 03/12/18 13:35 Dose: 1,000 mg Al Hydroxide/Mg Hydroxide (Mylanta Ii) 30 ml PO Q6H PRN PRN PRN Reason: INDIGESTION Bisacodyl (Dulcolax) 10 mg RECTAL .PRN X 1 PRN PRN Reason: Constipation Enoxaparin Sodium (Lovenox) 40 mg SC DAILY@0600 [facility] Last Admin: 03/12/18 06:58 Dose: 40 mg Fentanyl (Duragesic Patch) 25 mcg TRANSDERM. Q3D [facility] Last Admin: 03/10/18 21:17 Dose: 25 mcg Lisinopril (Zestril) 10 mg PO DAILY [facility] Last Admin: 03/12/18 09:18 Dose: 10 mg Magnesium Hydroxide (Milk Of Magnesia) 30 ml PO .PRN X 1 PRN PRN Reason: Constipation Last Admin: 03/08/18 05:13 Dose: 30 ml Methocarbamol (Robaxin) 1,000 mg PO 4X/DAY [facility] Last Admin: 03/12/18 13:35 Dose: 1,000 mg Nutritional Formula (Lactose Free) (Ensure Clear) 120 ml PO 4X/DAY [facility] Last Admin: 03/12/18 13:35 Dose: Not Given Oxycodone HCl (Oxyir) 5 - 10 mg PO Q4H PRN PRN PRN Reason: PAIN Last Admin: 03/10/18 05:15 Dose: 10 mg Polyethylene Glycol (Miralax) 17 gm PO BID [facility] Last Admin: 03/12/18 09:17 Dose: Not Given Senna/Docusate Sodium (Senokot-S, Soha-Colace) 2 tablet PO DAILY [facility] Last Admin: 03/12/18 09:18 Dose: 2 tablet Tamsulosin HCl (Flomax) 0.4 mg PO DAILY [facility] Last Admin: 03/12/18 09:18 Dose: 0.4 mg Medical Necessity - Tobacco Use Smoking Status: Never smoker Assessment/Plan 1. Central cord syndrome hard collar in place follow up with neurosurgery/spine for follow up. 2. Urinary retention lópez in place--to be removed 03/14 continue flomax 3. Left hip fracture. non-surgical follow up with orthopaedics as outpt. immobilizer 4. DVT proph: LMWH. Code Visit Inpatient E&M: 72549 [facility] Hosp L2
--- NOTE | 2018-03-12 16:48 | PN_ITS ---
Subjective: Tired after therapy today. No new complaints. Vitals/I&O's: Vital Signs Temp Pulse Resp BP Pulse Ox 36.6 C 72 12 139/78 H 97 03/12/18 07:50 03/12/18 07:50 03/12/18 07:50 03/12/18 07:50 03/12/18 07:50 Oxygen Delivery Method Room Air Weight: 87.09 kg Body Mass Index (BMI) 26.0 Intake and Output for Last 24 Hours 03/10/18 03/11/18 03/12/18 23:59 23:59 23:59 Intake Total 700 / 700 1420 / 1420 550 / 550 Output Total 1250 / 1250 1950 / 1950 1150 / 1150 Balance -550 / -550 -530 / -530 -600 / -600 General: Alert, Cooperative, No apparent distress HEENT: Atraumatic, Normocephalic Neck: - - hard collar in place. Lungs: Clear to auscultation, Normal air movement, No rhonchi, No wheeze Cardiovascular: Regular rate, Regular Rhythm, Normal S1, Normal S2, No murmurs Abdomen: Bowel Sounds Present, Soft, Non Tender, Non-Distended, No Hepato- splenomegaly Extremities: No edema, No Calf Tenderness Psych/Mental Status: Normal Affect, Appropriate Current Medications Acetaminophen (Tylenol) 1,000 mg PO TID [facility] Last Admin: 03/12/18 13:35 Dose: 1,000 mg Al Hydroxide/Mg Hydroxide (Mylanta Ii) 30 ml PO Q6H PRN PRN PRN Reason: INDIGESTION Bisacodyl (Dulcolax) 10 mg RECTAL .PRN X 1 PRN PRN Reason: Constipation Enoxaparin Sodium (Lovenox) 40 mg SC DAILY@0600 [facility] Last Admin: 03/12/18 06:58 Dose: 40 mg Fentanyl (Duragesic Patch) 25 mcg TRANSDERM. Q3D [facility] Last Admin: 03/10/18 21:17 Dose: 25 mcg Lisinopril (Zestril) 10 mg PO DAILY [facility] Last Admin: 03/12/18 09:18 Dose: 10 mg Magnesium Hydroxide (Milk Of Magnesia) 30 ml PO .PRN X 1 PRN PRN Reason: Constipation Last Admin: 03/08/18 05:13 Dose: 30 ml Methocarbamol (Robaxin) 1,000 mg PO 4X/DAY [facility] Last Admin: 03/12/18 13:35 Dose: 1,000 mg Nutritional Formula (Lactose Free) (Ensure Clear) 120 ml PO 4X/DAY [facility] Last Admin: 03/12/18 13:35 Dose: Not Given Oxycodone HCl (Oxyir) 5 - 10 mg PO Q4H PRN PRN PRN Reason: PAIN Last Admin: 03/10/18 05:15 Dose: 10 mg Polyethylene Glycol (Miralax) 17 gm PO BID [facility] Last Admin: 03/12/18 09:17 Dose: Not Given Senna/Docusate Sodium (Senokot-S, Soha-Colace) 2 tablet PO DAILY [facility] Last Admin: 03/12/18 09:18 Dose: 2 tablet Tamsulosin HCl (Flomax) 0.4 mg PO DAILY [facility] Last Admin: 03/12/18 09:18 Dose: 0.4 mg Medical Necessity - Tobacco Use Smoking Status: Never smoker Assessment/Plan 1. Central cord syndrome * hard collar in place * follow up with neurosurgery/spine for follow up. 2. Urinary retention * lópez in place--to be removed 03/14 * continue flomax 3. Left hip fracture. * non-surgical * follow up with orthopaedics as outpt. * immobilizer 4. DVT proph: LMWH. Code Visit Inpatient E&M: 02288 Subs Hosp L2
[2018-03-12 21:40] VITALS: BP 130/76; PULSE 70; RESP 16; TEMP 36.7; O2SAT 96
[2018-03-13] MEDS: Enoxaparin 40 MG/0.4 ML Syringe SC (05:45)
[2018-03-13] MEDS: Acetaminophen 500 MG Tablet 1000 MG PO ×3 (05:46→22:16)
[2018-03-13 08:21] VITALS: BP 135/77; PULSE 73; RESP 18; TEMP 36.6; O2SAT 96
[2018-03-13] MEDS: Methocarbamol 500 MG Tablet 1000 MG PO ×4 (09:13→22:15)
[2018-03-13] MEDS: Tamsulosin HCl 0.4 MG Capsule PO (09:13)
[2018-03-13] MEDS: Senna/Docusate Sodium 1 Tablet 2 TABLET PO (09:13)
[2018-03-13] MEDS: Lisinopril 10 MG Tablet PO (09:13)
--- NOTE | 2018-03-13 11:24 | CASEMGMT ---
Insurance Clinical information sent. Pending continued stay approval at this time. Auth#[id number] ANGLE Bradley, LEASE ANALYST
--- NOTE | 2018-03-13 11:51 | PN.NEURO_ITS ---
Subjective: Patient doing well, no new complaints. Tolerating therapy. - Physical Exam General: Alert, Oriented x3, Cooperative HEENT: Atraumatic, PERRLA, EOMI, Normocephalic Neck: Supple, No JVD, Negative Carotid Bruits Lungs: Clear to auscultation, Normal air movement Cardiovascular: Regular rate, No murmurs Abdomen: Bowel Sounds Present, Soft, Non Tender Extremities: No edema, Capillary Refill Less than 3 Seconds Skin: No rashes, No breakdown Musculoskeletal: No Tenderness to Palpation of Joints or Extremities Neurological: Cranial nerves II-XII grossly intact Psych/Mental Status: Normal Affect, Appropriate, Alert and oriented to time, place, person, mood and affect Vital Signs Temp Pulse Resp BP Pulse Ox 97.8 F 73 18 135/77 H 96 03/13/18 08:21 03/13/18 08:21 03/13/18 08:21 03/13/18 08:21 03/13/18 08:21 Oxygen Delivery Method Room Air Weight: 87.09 kg Body Mass Index (BMI) 26.0 Intake and Output for Last 24 Hours 03/11/18 03/12/18 03/13/18 23:59 23:59 23:59 Intake Total 1420 / 1420 550 / 550 400 / 400 Output Total 1950 / 1950 1950 / 1950 1250 / 1250 Balance -530 / -530 -1400 / -1400 -850 / -850 Active Medications Acetaminophen (Tylenol) 1,000 mg PO TID [facility] Last Admin: 03/13/18 05:46 Dose: 1,000 mg Al Hydroxide/Mg Hydroxide (Mylanta Ii) 30 ml PO Q6H PRN PRN PRN Reason: INDIGESTION Bisacodyl (Dulcolax) 10 mg RECTAL .PRN X 1 PRN PRN Reason: Constipation Enoxaparin Sodium (Lovenox) 40 mg SC DAILY@0600 [facility] Last Admin: 03/13/18 05:45 Dose: 40 mg Fentanyl (Duragesic Patch) 25 mcg TRANSDERM. Q3D [facility] Last Admin: 03/10/18 21:17 Dose: 25 mcg Lisinopril (Zestril) 10 mg PO DAILY [facility] Last Admin: 03/13/18 09:13 Dose: 10 mg Magnesium Hydroxide (Milk Of Magnesia) 30 ml PO .PRN X 1 PRN PRN Reason: Constipation Last Admin: 03/08/18 05:13 Dose: 30 ml Methocarbamol (Robaxin) 1,000 mg PO 4X/DAY [facility] Last Admin: 03/13/18 09:13 Dose: 1,000 mg Nutritional Formula (Lactose Free) (Ensure Clear) 120 ml PO 4X/DAY [facility] Last Admin: 03/13/18 09:09 Dose: Not Given Oxycodone HCl (Oxyir) 5 - 10 mg PO Q4H PRN PRN PRN Reason: PAIN Last Admin: 03/10/18 05:15 Dose: 10 mg Polyethylene Glycol (Miralax) 17 gm PO BID [facility] Last Admin: 03/13/18 09:13 Dose: Not Given Senna/Docusate Sodium (Senokot-S, Soha-Colace) 2 tablet PO DAILY [facility] Last Admin: 03/13/18 09:13 Dose: 2 tablet Tamsulosin HCl (Flomax) 0.4 mg PO DAILY [facility] Last Admin: 03/13/18 09:13 Dose: 0.4 mg Medical Necessity - Tobacco Use Smoking Status: Never smoker Assessment/Plan Debility 2/2 central cord syndrome, and a Left femur fracture. Goal of rehab is nondenominational of prior level of functional independence. Plan: - Physical therapy for gait and balance - Occupational Therapy for ADLs - As needed analgesics - Bowel protocol - DVT prophylaxis: Lovenox, SCD on right leg only - HLD - Currently not on medication - HTN - stable => continue home medications of lisinopril - Left femur fracture - Maintain knee immobilizer at all times. - Urine retention, failed voiding trail at OSH transferred to [facility] with Khan in place. Remove per admission orders with voiding trial x 2 weeks. - Central Cord syndrome - maintain [place] J collar at all times
--- NOTE | 2018-03-13 16:55 | CASEMGMT ---
Insurance Continued stay approved with next update due on 03/19/18. Auth#[id number] ANGLE Bradley, ELECTRONICS ENGINEERING MANAGER
[2018-03-13 19:39] VITALS: BP 127/72; PULSE 74; RESP 16; TEMP 36.7; O2SAT 99
[2018-03-13] MEDS: fentaNYL 25 MCG Patch TRANSDERM. (22:15)
[2018-03-14] MEDS: Acetaminophen 500 MG Tablet 1000 MG PO ×3 (05:47→20:56)
[2018-03-14] MEDS: Enoxaparin 40 MG/0.4 ML Syringe SC (05:47)
--- NOTE | 2018-03-14 06:00 | RAD_ITS ---
STUDY: X-RAY - LEFT KNEE REASON FOR EXAM: Male, 58 years old. History of left femoral fracture. TECHNIQUE: 2 view(s) of the knee. COMPARISON: Comparison is made with prior examination dated March 01, 2018. FINDINGS: Stable nondisplaced linear fracture of the distal femoral shaft with extension to the articular surface on the lateral side. Small residual joint effusion. RAD/Knee 1 or 2 Views IMPRESSION: Stable appearance of the linear fracture involving the distal shaft of the femur with extension to the articular surface on the lateral aspect. Electronically Signed: Raymond Valiente MD at 9:49 EST Tel [phone], Service support ,
--- NOTE | 2018-03-14 06:10 | NURSING ---
Khan removed and pt tolerated well
[2018-03-14] MEDS: Senna/Docusate Sodium 1 Tablet 2 TABLET PO (08:22)
[2018-03-14] MEDS: Tamsulosin HCl 0.4 MG Capsule PO (08:22)
[2018-03-14 09:20] VITALS: BP 115/70; PULSE 73; RESP 18; TEMP 36.6; O2SAT 99
[2018-03-14] MEDS: Methocarbamol 500 MG Tablet 1000 MG PO ×4 (10:12→20:57)
[2018-03-14] MEDS: Lisinopril 10 MG Tablet PO (10:12)
--- NOTE | 2018-03-14 10:50 | PCM.PN.HOSP ---
Subjective: no new complaints. lópez taken out 3-4 hours earlier. Vitals/I&O's: Vital Signs Temp Pulse Resp BP Pulse Ox 36.6 C 73 18 115/70 99 03/14/18 09:20 03/14/18 09:20 03/14/18 09:20 03/14/18 09:20 03/14/18 09:20 Oxygen Delivery Method Room Air Weight: 87.09 kg Body Mass Index (BMI) 26.0 Intake and Output for Last 24 Hours 03/12/18 03/13/18 03/14/18 23:59 23:59 23:59 Intake Total 550 / 550 1580 / 1580 560 / 560 Output Total 1950 / 1950 1650 / 1650 1350 / 1350 Balance -1400 / -1400 -70 / -70 -790 / -790 General: Alert, Cooperative, No apparent distress HEENT: Atraumatic, Normocephalic Oral: Moist Mucosa, No Gingival or Mucosal Lesions/ Ulcerations Lungs: Clear to auscultation, Normal air movement, No rhonchi, No wheeze Cardiovascular: Regular rate, Regular Rhythm, Normal S1, Normal S2 Abdomen: Bowel Sounds Present, Soft, Non Tender, Non-Distended Current Medications Acetaminophen (Tylenol) 1,000 mg PO TID [facility] Last Admin: 03/14/18 05:47 Dose: 1,000 mg Al Hydroxide/Mg Hydroxide (Mylanta Ii) 30 ml PO Q6H PRN PRN PRN Reason: INDIGESTION Bisacodyl (Dulcolax) 10 mg RECTAL .PRN X 1 PRN PRN Reason: Constipation Enoxaparin Sodium (Lovenox) 40 mg SC DAILY@0600 [facility] Last Admin: 03/14/18 05:47 Dose: 40 mg Fentanyl (Duragesic Patch) 25 mcg TRANSDERM. Q3D [facility] Last Admin: 03/13/18 22:15 Dose: 25 mcg Ibuprofen (Motrin) 400 mg PO Q6H PRN PRN PRN Reason: MILD PAIN (1-3/10) Lisinopril (Zestril) 10 mg PO DAILY [facility] Last Admin: 03/14/18 10:12 Dose: 10 mg Magnesium Hydroxide (Milk Of Magnesia) 30 ml PO .PRN X 1 PRN PRN Reason: Constipation Last Admin: 12/06/18 05:13 Dose: 30 ml Methocarbamol (Robaxin) 1,000 mg PO 4X/DAY [facility] Last Admin: 03/14/18 10:12 Dose: 1,000 mg Nutritional Formula (Lactose Free) (Ensure Clear) 120 ml PO 4X/DAY [facility] Last Admin: 03/14/18 08:18 Dose: Not Given Oxycodone HCl (Oxyir) 5 - 10 mg PO Q4H PRN PRN PRN Reason: PAIN Last Admin: 03/10/18 05:15 Dose: 10 mg Polyethylene Glycol (Miralax) 17 gm PO BID [facility] Last Admin: 03/14/18 08:17 Dose: Not Given Senna/Docusate Sodium (Senokot-S, Soha-Colace) 2 tablet PO DAILY [facility] Last Admin: 03/14/18 08:22 Dose: 2 tablet Tamsulosin HCl (Flomax) 0.4 mg PO DAILY [facility] Last Admin: 03/14/18 08:22 Dose: 0.4 mg Medical Necessity - Tobacco Use Smoking Status: Never smoker Assessment/Plan 1. Central cord syndrome hard collar in place follow up with neurosurgery/spine for follow up. 2. Urinary retention lópez in place--to be removed 03/14. Monitor PVR. If high PVR, replace catheter and follow up with urology. continue flomax 3. Left hip fracture. non-surgical follow up with orthopaedics as outpt. immobilizer 4. DVT proph: LMWH. Code Visit Inpatient E&M: 87986 Subs Hosp L2
--- NOTE | 2018-03-14 10:53 | PN_ITS ---
Subjective: no new complaints. lópez taken out 3-4 hours earlier. Vitals/I&O's: Vital Signs Temp Pulse Resp BP Pulse Ox 36.6 C 73 18 115/70 99 03/14/18 09:20 03/14/18 09:20 03/14/18 09:20 03/14/18 09:20 03/14/18 09:20 Oxygen Delivery Method Room Air Weight: 87.09 kg Body Mass Index (BMI) 26.0 Intake and Output for Last 24 Hours 03/12/18 03/13/18 03/14/18 23:59 23:59 23:59 Intake Total 550 / 550 1580 / 1580 560 / 560 Output Total 1950 / 1950 1650 / 1650 1350 / 1350 Balance -1400 / -1400 -70 / -70 -790 / -790 General: Alert, Cooperative, No apparent distress HEENT: Atraumatic, Normocephalic Oral: Moist Mucosa, No Gingival or Mucosal Lesions/ Ulcerations Lungs: Clear to auscultation, Normal air movement, No rhonchi, No wheeze Cardiovascular: Regular rate, Regular Rhythm, Normal S1, Normal S2 Abdomen: Bowel Sounds Present, Soft, Non Tender, Non-Distended Current Medications Acetaminophen (Tylenol) 1,000 mg PO TID [facility] Last Admin: 03/14/18 05:47 Dose: 1,000 mg Al Hydroxide/Mg Hydroxide (Mylanta Ii) 30 ml PO Q6H PRN PRN PRN Reason: INDIGESTION Bisacodyl (Dulcolax) 10 mg RECTAL .PRN X 1 PRN PRN Reason: Constipation Enoxaparin Sodium (Lovenox) 40 mg SC DAILY@0600 [facility] Last Admin: 03/14/18 05:47 Dose: 40 mg Fentanyl (Duragesic Patch) 25 mcg TRANSDERM. Q3D [facility] Last Admin: 03/13/18 22:15 Dose: 25 mcg Ibuprofen (Motrin) 400 mg PO Q6H PRN PRN PRN Reason: MILD PAIN (1-3/10) Lisinopril (Zestril) 10 mg PO DAILY [facility] Last Admin: 03/14/18 10:12 Dose: 10 mg Magnesium Hydroxide (Milk Of Magnesia) 30 ml PO .PRN X 1 PRN PRN Reason: Constipation Last Admin: 12/06/18 05:13 Dose: 30 ml Methocarbamol (Robaxin) 1,000 mg PO 4X/DAY [facility] Last Admin: 03/14/18 10:12 Dose: 1,000 mg Nutritional Formula (Lactose Free) (Ensure Clear) 120 ml PO 4X/DAY [facility] Last Admin: 03/14/18 08:18 Dose: Not Given Oxycodone HCl (Oxyir) 5 - 10 mg PO Q4H PRN PRN PRN Reason: PAIN Last Admin: 03/10/18 05:15 Dose: 10 mg Polyethylene Glycol (Miralax) 17 gm PO BID [facility] Last Admin: 03/14/18 08:17 Dose: Not Given Senna/Docusate Sodium (Senokot-S, Soha-Colace) 2 tablet PO DAILY [facility] Last Admin: 03/14/18 08:22 Dose: 2 tablet Tamsulosin HCl (Flomax) 0.4 mg PO DAILY [facility] Last Admin: 03/14/18 08:22 Dose: 0.4 mg Medical Necessity - Tobacco Use Smoking Status: Never smoker Assessment/Plan 1. Central cord syndrome * hard collar in place * follow up with neurosurgery/spine for follow up. 2. Urinary retention * lópez in place--to be removed 03/14. Monitor PVR. If high PVR, replace catheter and follow up with urology. * continue flomax 3. Left hip fracture. * non-surgical * follow up with orthopaedics as outpt. * immobilizer 4. DVT proph: LMWH. Code Visit Inpatient E&M: 23775 Subs Hosp L2
[2018-03-14] MEDS: Ibuprofen 400 MG Tablet PO (13:32)
--- NOTE | 2018-03-14 17:09 | PCM.PN.NEU ---
Subjective: Patient seen and examined, Khan removed this morning, voiding without difficulty. - Physical Exam General: Alert, Oriented x3, Cooperative HEENT: Atraumatic, PERRLA, EOMI, Normocephalic Neck: Supple, No JVD, Negative Carotid Bruits Lungs: Clear to auscultation, Normal air movement Cardiovascular: Regular rate, No murmurs Abdomen: Bowel Sounds Present, Soft, Non Tender Extremities: No edema, Capillary Refill Less than 3 Seconds Skin: No rashes, No breakdown Musculoskeletal: No Tenderness to Palpation of Joints or Extremities Neurological: Cranial nerves II-XII grossly intact Psych/Mental Status: Normal Affect, Appropriate, Alert and oriented to time, place, person, mood and affect Vital Signs Temp Pulse Resp BP Pulse Ox 97.9 F 73 18 115/70 99 03/14/18 09:20 03/14/18 09:20 03/14/18 09:20 03/14/18 09:20 03/14/18 09:20 Oxygen Delivery Method Room Air Weight: 87 kg Body Mass Index (BMI) 26.0 Intake and Output for Last 24 Hours 03/12/18 03/13/18 03/14/18 23:59 23:59 23:59 Intake Total 550 / 550 1580 / 1580 1100 / 1100 Output Total 1950 / 1950 1650 / 1650 1850 / 1850 Balance -1400 / -1400 -70 / -70 -750 / -750 Active Medications Acetaminophen (Tylenol) 1,000 mg PO TID [facility] Last Admin: 03/14/18 14:36 Dose: 1,000 mg Al Hydroxide/Mg Hydroxide (Mylanta Ii) 30 ml PO Q6H PRN PRN PRN Reason: INDIGESTION Bisacodyl (Dulcolax) 10 mg RECTAL .PRN X 1 PRN PRN Reason: Constipation Enoxaparin Sodium (Lovenox) 40 mg SC DAILY@0600 [facility] Last Admin: 03/14/18 05:47 Dose: 40 mg Fentanyl (Duragesic Patch) 25 mcg TRANSDERM. Q3D [facility] Last Admin: 03/13/18 22:15 Dose: 25 mcg Ibuprofen (Motrin) 400 mg PO Q6H PRN PRN PRN Reason: MILD PAIN (1-3/10) Last Admin: 03/14/18 13:32 Dose: 400 mg Lisinopril (Zestril) 10 mg PO DAILY [facility] Last Admin: 03/14/18 10:12 Dose: 10 mg Magnesium Hydroxide (Milk Of Magnesia) 30 ml PO .PRN X 1 PRN PRN Reason: Constipation Last Admin: 03/08/18 05:13 Dose: 30 ml Methocarbamol (Robaxin) 1,000 mg PO 4X/DAY [facility] Last Admin: 03/14/18 13:32 Dose: 1,000 mg Nutritional Formula (Lactose Free) (Ensure Clear) 120 ml PO 4X/DAY [facility] Last Admin: 03/14/18 13:32 Dose: Not Given Oxycodone HCl (Oxyir) 5 - 10 mg PO Q4H PRN PRN PRN Reason: PAIN Last Admin: 03/10/18 05:15 Dose: 10 mg Polyethylene Glycol (Miralax) 17 gm PO BID [facility] Last Admin: 03/14/18 08:17 Dose: Not Given Senna/Docusate Sodium (Senokot-S, Soha-Colace) 2 tablet PO DAILY [facility] Last Admin: 03/14/18 08:22 Dose: 2 tablet Tamsulosin HCl (Flomax) 0.4 mg PO DAILY [facility] Last Admin: 03/14/18 08:22 Dose: 0.4 mg Medical Necessity - Tobacco Use Smoking Status: Never smoker Assessment/Plan Debility 2/2 central cord syndrome, and a Left femur fracture. Goal of rehab is zoroastrianism of prior level of functional independence. Plan: - Physical therapy for gait and balance - Occupational Therapy for ADLs - As needed analgesics - Bowel protocol - DVT prophylaxis: Lovenox, SCD on right leg only - HLD - Currently not on medication - HTN - stable => continue home medications of lisinopril - Left femur fracture - Maintain knee immobilizer at all times. - Urine retention, failed voiding trail at OSH transferred to [facility] with Khan in place. Remove per admission orders with voiding trial x 2 weeks. => Khan removed, voided with difficulty, 33cc residual noted after void. - Central Cord syndrome - maintain [place] J collar at all times
--- NOTE | 2018-03-14 17:17 | PN.NEURO_ITS ---
Addendum entered and electronically signed by KIMANI Park 03/14/18 17:19: Original Note: Subjective: Patient seen and examined, Khan removed this morning, voiding without difficulty. - Physical Exam General: Alert, Oriented x3, Cooperative HEENT: Atraumatic, PERRLA, EOMI, Normocephalic Neck: Supple, No JVD, Negative Carotid Bruits Lungs: Clear to auscultation, Normal air movement Cardiovascular: Regular rate, No murmurs Abdomen: Bowel Sounds Present, Soft, Non Tender Extremities: No edema, Capillary Refill Less than 3 Seconds Skin: No rashes, No breakdown Musculoskeletal: No Tenderness to Palpation of Joints or Extremities Neurological: Cranial nerves II-XII grossly intact Psych/Mental Status: Normal Affect, Appropriate, Alert and oriented to time, place, person, mood and affect Vital Signs Temp Pulse Resp BP Pulse Ox 97.9 F 73 18 115/70 99 03/14/18 09:20 03/14/18 09:20 03/14/18 09:20 03/14/18 09:20 03/14/18 09:20 Oxygen Delivery Method Room Air Weight: 87 kg Body Mass Index (BMI) 26.0 Intake and Output for Last 24 Hours 03/12/18 03/13/18 03/14/18 23:59 23:59 23:59 Intake Total 550 / 550 1580 / 1580 1100 / 1100 Output Total 1950 / 1950 1650 / 1650 1850 / 1850 Balance -1400 / -1400 -70 / -70 -750 / -750 Active Medications Acetaminophen (Tylenol) 1,000 mg PO TID [facility] Last Admin: 03/14/18 14:36 Dose: 1,000 mg Al Hydroxide/Mg Hydroxide (Mylanta Ii) 30 ml PO Q6H PRN PRN PRN Reason: INDIGESTION Bisacodyl (Dulcolax) 10 mg RECTAL .PRN X 1 PRN PRN Reason: Constipation Enoxaparin Sodium (Lovenox) 40 mg SC DAILY@0600 [facility] Last Admin: 03/14/18 05:47 Dose: 40 mg Fentanyl (Duragesic Patch) 25 mcg TRANSDERM. Q3D [facility] Last Admin: 03/13/18 22:15 Dose: 25 mcg Ibuprofen (Motrin) 400 mg PO Q6H PRN PRN PRN Reason: MILD PAIN (-3) Last Admin: 03/14/18 13:32 Dose: 400 mg Lisinopril (Zestril) 10 mg PO DAILY [facility] Last Admin: 03/14/18 10:12 Dose: 10 mg Magnesium Hydroxide (Milk Of Magnesia) 30 ml PO .PRN X 1 PRN PRN Reason: Constipation Last Admin: 03/08/18 05:13 Dose: 30 ml Methocarbamol (Robaxin) 1,000 mg PO 4X/DAY [facility] Last Admin: 03/14/18 13:32 Dose: 1,000 mg Nutritional Formula (Lactose Free) (Ensure Clear) 120 ml PO 4X/DAY [facility] Last Admin: 03/14/18 13:32 Dose: Not Given Oxycodone HCl (Oxyir) 5 - 10 mg PO Q4H PRN PRN PRN Reason: PAIN Last Admin: 03/10/18 05:15 Dose: 10 mg Polyethylene Glycol (Miralax) 17 gm PO BID [facility] Last Admin: 03/14/18 08:17 Dose: Not Given Senna/Docusate Sodium (Senokot-S, Soha-Colace) 2 tablet PO DAILY [facility] Last Admin: 03/14/18 08:22 Dose: 2 tablet Tamsulosin HCl (Flomax) 0.4 mg PO DAILY [facility] Last Admin: 03/14/18 08:22 Dose: 0.4 mg Medical Necessity - Tobacco Use Smoking Status: Never smoker Assessment/Plan Debility 2/2 central cord syndrome, and a Left femur fracture. Goal of rehab is faith of prior level of functional independence. Plan: - Physical therapy for gait and balance - Occupational Therapy for ADLs - As needed analgesics - Bowel protocol - DVT prophylaxis: Lovenox, SCD on right leg only - HLD - Currently not on medication - HTN - stable => continue home medications of lisinopril - Left femur fracture - Maintain knee immobilizer at all times. - Urine retention, failed voiding trail at OSH transferred to [facility] with Khan in place. Remove per admission orders with voiding trial x 2 weeks. => Khan removed, voided with difficulty, 33cc residual noted after void. - Central Cord syndrome - maintain [place] J collar at all times
[2018-03-14 19:35] VITALS: BP 129/69; PULSE 81; RESP 18; TEMP 36.7; O2SAT 96
--- NOTE | 2018-03-14 21:23 | NURSING ---
PT DOES NOT FEEL URGE TO VOID AT THIS TIME. BLADDER SCAN DONE. ENCOURAGED TO DRINK FLUIDS.
[2018-03-15] MEDS: Acetaminophen 500 MG Tablet 1000 MG PO ×3 (06:04→21:20)
[2018-03-15] MEDS: Enoxaparin 40 MG/0.4 ML Syringe SC (06:04)
[2018-03-15 07:30] VITALS: BP 125/71; PULSE 72; RESP 12; TEMP 36.9; O2SAT 96
[2018-03-15] MEDS: Methocarbamol 500 MG Tablet 1000 MG PO ×4 (09:36→21:21)
[2018-03-15] MEDS: Polyethylene Glycol 3350 17 GM PACKET PO ×2 (09:36→21:21)
[2018-03-15] MEDS: Lisinopril 10 MG Tablet PO (09:36)
[2018-03-15] MEDS: Tamsulosin HCl 0.4 MG Capsule PO (09:36)
--- NOTE | 2018-03-15 09:52 | PCM.PN.NEU ---
Subjective: Patient seen, no new issues. Tolerating therapy, continues to void without difficulty since removal of Khan cath yesterday. No issues with GI. - Physical Exam General: Alert, Oriented x3, Cooperative HEENT: Atraumatic, PERRLA, EOMI, Normocephalic Neck: Supple, No JVD, Negative Carotid Bruits Lungs: Clear to auscultation, Normal air movement Cardiovascular: Regular rate, No murmurs Abdomen: Bowel Sounds Present, Soft, Non Tender Extremities: No edema, Capillary Refill Less than 3 Seconds Skin: No rashes, No breakdown Musculoskeletal: No Tenderness to Palpation of Joints or Extremities Neurological: Cranial nerves II-XII grossly intact Psych/Mental Status: Normal Affect, Appropriate, Alert and oriented to time, place, person, mood and affect Vital Signs Temp Pulse Resp BP Pulse Ox 98.1 F 81 18 129/69 H 96 03/14/18 19:35 03/14/18 19:35 03/14/18 19:35 03/14/18 19:35 03/14/18 19:35 Oxygen Delivery Method Room Air Weight: 87 kg Body Mass Index (BMI) 26.0 Intake and Output for Last 24 Hours 03/13/18 03/14/18 03/15/18 23:59 23:59 23:59 Intake Total 1580 / 1580 1100 / 1100 100 / 100 Output Total 1650 / 1650 1850 / 1850 900 / 900 Balance -70 / -70 -750 / -750 -800 / -800 Active Medications Acetaminophen (Tylenol) 1,000 mg PO TID [facility] Last Admin: 03/15/18 06:04 Dose: 1,000 mg Al Hydroxide/Mg Hydroxide (Mylanta Ii) 30 ml PO Q6H PRN PRN PRN Reason: INDIGESTION Bisacodyl (Dulcolax) 10 mg RECTAL .PRN X 1 PRN PRN Reason: Constipation Enoxaparin Sodium (Lovenox) 40 mg SC DAILY@0600 [facility] Last Admin: 03/15/18 06:04 Dose: 40 mg Fentanyl (Duragesic Patch) 25 mcg TRANSDERM. Q3D [facility] Last Admin: 03/13/18 22:15 Dose: 25 mcg Ibuprofen (Motrin) 400 mg PO Q6H PRN PRN PRN Reason: MILD PAIN (1-3/10) Last Admin: 03/14/18 13:32 Dose: 400 mg Lisinopril (Zestril) 10 mg PO DAILY [facility] Last Admin: 03/15/18 09:36 Dose: 10 mg Magnesium Hydroxide (Milk Of Magnesia) 30 ml PO .PRN X 1 PRN PRN Reason: Constipation Last Admin: 03/08/18 05:13 Dose: 30 ml Methocarbamol (Robaxin) 1,000 mg PO 4X/DAY [facility] Last Admin: 03/15/18 09:36 Dose: 1,000 mg Oxycodone HCl (Oxyir) 5 - 10 mg PO Q4H PRN PRN PRN Reason: PAIN Last Admin: 03/10/18 05:15 Dose: 10 mg Polyethylene Glycol (Miralax) 17 gm PO BID [facility] Last Admin: 03/15/18 09:36 Dose: 17 gm Senna/Docusate Sodium (Senokot-S, Soha-Colace) 2 tablet PO DAILY [facility] Last Admin: 03/15/18 09:38 Dose: Not Given Tamsulosin HCl (Flomax) 0.4 mg PO DAILY [facility] Last Admin: 03/15/18 09:36 Dose: 0.4 mg Medical Necessity - Tobacco Use Smoking Status: Never smoker Assessment/Plan Debility 2/2 central cord syndrome, and a Left femur fracture. Goal of rehab is pentecostalism of prior level of functional independence. Plan: - Physical therapy for gait and balance - Occupational Therapy for ADLs - As needed analgesics - Bowel protocol - DVT prophylaxis: Lovenox, SCD on right leg only - HLD - Currently not on medication - HTN - stable => continue home medications of lisinopril - Left femur fracture - Maintain knee immobilizer at all times. - Urine retention, failed voiding trail at OSH transferred to [facility] with Khan in place. Remove per admission orders with voiding trial x 2 weeks. => Khan removed, voided with difficulty, 33cc residual noted after void. - Central Cord syndrome - maintain [place] J collar at all times
--- NOTE | 2018-03-15 09:55 | PN.NEURO_ITS ---
Subjective: Patient seen, no new issues. Tolerating therapy, continues to void without difficulty since removal of Khan cath yesterday. No issues with GI. - Physical Exam General: Alert, Oriented x3, Cooperative HEENT: Atraumatic, PERRLA, EOMI, Normocephalic Neck: Supple, No JVD, Negative Carotid Bruits Lungs: Clear to auscultation, Normal air movement Cardiovascular: Regular rate, No murmurs Abdomen: Bowel Sounds Present, Soft, Non Tender Extremities: No edema, Capillary Refill Less than 3 Seconds Skin: No rashes, No breakdown Musculoskeletal: No Tenderness to Palpation of Joints or Extremities Neurological: Cranial nerves II-XII grossly intact Psych/Mental Status: Normal Affect, Appropriate, Alert and oriented to time, place, person, mood and affect Vital Signs Temp Pulse Resp BP Pulse Ox 98.1 F 81 18 129/69 H 96 03/14/18 19:35 03/14/18 19:35 03/14/18 19:35 03/14/18 19:35 03/14/18 19:35 Oxygen Delivery Method Room Air Weight: 87 kg Body Mass Index (BMI) 26.0 Intake and Output for Last 24 Hours 03/13/18 03/14/18 03/15/18 23:59 23:59 23:59 Intake Total 1580 / 1580 1100 / 1100 100 / 100 Output Total 1650 / 1650 1850 / 1850 900 / 900 Balance -70 / -70 -750 / -750 -800 / -800 Active Medications Acetaminophen (Tylenol) 1,000 mg PO TID [facility] Last Admin: 03/15/18 06:04 Dose: 1,000 mg Al Hydroxide/Mg Hydroxide (Mylanta Ii) 30 ml PO Q6H PRN PRN PRN Reason: INDIGESTION Bisacodyl (Dulcolax) 10 mg RECTAL .PRN X 1 PRN PRN Reason: Constipation Enoxaparin Sodium (Lovenox) 40 mg SC DAILY@0600 [facility] Last Admin: 03/15/18 06:04 Dose: 40 mg Fentanyl (Duragesic Patch) 25 mcg TRANSDERM. Q3D [facility] Last Admin: 03/13/18 22:15 Dose: 25 mcg Ibuprofen (Motrin) 400 mg PO Q6H PRN PRN PRN Reason: MILD PAIN (1-3/10) Last Admin: 03/14/18 13:32 Dose: 400 mg Lisinopril (Zestril) 10 mg PO DAILY [facility] Last Admin: 03/15/18 09:36 Dose: 10 mg Magnesium Hydroxide (Milk Of Magnesia) 30 ml PO .PRN X 1 PRN PRN Reason: Constipation Last Admin: 03/08/18 05:13 Dose: 30 ml Methocarbamol (Robaxin) 1,000 mg PO 4X/DAY [facility] Last Admin: 03/15/18 09:36 Dose: 1,000 mg Oxycodone HCl (Oxyir) 5 - 10 mg PO Q4H PRN PRN PRN Reason: PAIN Last Admin: 03/10/18 05:15 Dose: 10 mg Polyethylene Glycol (Miralax) 17 gm PO BID [facility] Last Admin: 03/15/18 09:36 Dose: 17 gm Senna/Docusate Sodium (Senokot-S, Soha-Colace) 2 tablet PO DAILY [facility] Last Admin: 03/15/18 09:38 Dose: Not Given Tamsulosin HCl (Flomax) 0.4 mg PO DAILY [facility] Last Admin: 03/15/18 09:36 Dose: 0.4 mg Medical Necessity - Tobacco Use Smoking Status: Never smoker Assessment/Plan Debility 2/2 central cord syndrome, and a Left femur fracture. Goal of rehab is yarsani of prior level of functional independence. Plan: - Physical therapy for gait and balance - Occupational Therapy for ADLs - As needed analgesics - Bowel protocol - DVT prophylaxis: Lovenox, SCD on right leg only - HLD - Currently not on medication - HTN - stable => continue home medications of lisinopril - Left femur fracture - Maintain knee immobilizer at all times. - Urine retention, failed voiding trail at OSH transferred to [facility] with Khan in place. Remove per admission orders with voiding trial x 2 weeks. => Khan removed, voided with difficulty, 33cc residual noted after void. - Central Cord syndrome - maintain [place] J collar at all times
[2018-03-15 22:00] VITALS: BP 110/73; PULSE 85; RESP 16; TEMP 36.6; O2SAT 96
[2018-03-16] MEDS: Enoxaparin 40 MG/0.4 ML Syringe SC (06:47)
[2018-03-16] MEDS: Acetaminophen 500 MG Tablet 1000 MG PO ×3 (06:47→20:53)
[2018-03-16 07:00] VITALS: BP 119/68; PULSE 82; RESP 16; TEMP 36.6; O2SAT 98
[2018-03-16] MEDS: Methocarbamol 500 MG Tablet 1000 MG PO ×4 (10:28→20:54)
[2018-03-16] MEDS: Tamsulosin HCl 0.4 MG Capsule PO (10:28)
[2018-03-16] MEDS: Lisinopril 10 MG Tablet PO (10:28)
[2018-03-16] MEDS: Senna/Docusate Sodium 1 Tablet 2 TABLET PO (10:29)
[2018-03-16] MEDS: Ibuprofen 400 MG Tablet PO ×2 (14:50→21:43)
--- NOTE | 2018-03-16 16:23 | PCM.PN.NEU ---
Subjective: Patient seen, no new complaints. He is doing very well in therapy, he was able to walk 30 feet x 2 using a platform walker. Pain is well controlled. Denies any shortness of breath, or chest pains. No issues with GI/. - Physical Exam General: Alert, Oriented x3, Cooperative HEENT: Atraumatic, PERRLA, EOMI, Normocephalic Neck: Supple, No JVD, Negative Carotid Bruits Lungs: Clear to auscultation, Normal air movement Cardiovascular: Regular rate, No murmurs Abdomen: Bowel Sounds Present, Soft, Non Tender Extremities: No edema, Capillary Refill Less than 3 Seconds Skin: No rashes, No breakdown Musculoskeletal: No Tenderness to Palpation of Joints or Extremities Neurological: Cranial nerves II-XII grossly intact Psych/Mental Status: Normal Affect, Appropriate, Alert and oriented to time, place, person, mood and affect Vital Signs Temp Pulse Resp BP Pulse Ox 97.8 F 82 16 119/68 98 03/16/18 07:00 03/16/18 07:00 03/16/18 07:00 03/16/18 07:00 03/16/18 07:00 Oxygen Delivery Method Room Air Weight: 87 kg Body Mass Index (BMI) 26.0 Intake and Output for Last 24 Hours 03/14/18 03/15/18 03/16/18 23:59 23:59 23:59 Intake Total 1100 / 1100 100 / 100 720 / 720 Output Total 1850 / 1850 1600 / 1600 1000 / 1000 Balance -750 / -750 -1500 / -1500 -280 / -280 Active Medications Acetaminophen (Tylenol) 1,000 mg PO TID [facility] Last Admin: 03/16/18 14:13 Dose: 1,000 mg Al Hydroxide/Mg Hydroxide (Mylanta Ii) 30 ml PO Q6H PRN PRN PRN Reason: INDIGESTION Bisacodyl (Dulcolax) 10 mg RECTAL .PRN X 1 PRN PRN Reason: Constipation Enoxaparin Sodium (Lovenox) 40 mg SC DAILY@0600 [facility] Last Admin: 03/16/18 06:47 Dose: 40 mg Fentanyl (Duragesic Patch) 25 mcg TRANSDERM. Q3D [facility] Stop: 03/16/18 19:45 Last Admin: 03/13/18 22:15 Dose: 25 mcg Ibuprofen (Motrin) 400 mg PO Q6H PRN PRN PRN Reason: MILD PAIN (1-3/10) Last Admin: 03/16/18 14:50 Dose: 400 mg Lisinopril (Zestril) 10 mg PO DAILY [facility] Last Admin: 03/16/18 10:28 Dose: 10 mg Magnesium Hydroxide (Milk Of Magnesia) 30 ml PO .PRN X 1 PRN PRN Reason: Constipation Last Admin: 03/08/18 05:13 Dose: 30 ml Methocarbamol (Robaxin) 1,000 mg PO 4X/DAY [facility] Last Admin: 03/16/18 14:14 Dose: 1,000 mg Oxycodone HCl (Oxyir) 5 - 10 mg PO Q4H PRN PRN PRN Reason: PAIN Last Admin: 03/10/18 05:15 Dose: 10 mg Polyethylene Glycol (Miralax) 17 gm PO BID [facility] Last Admin: 03/16/18 10:33 Dose: Not Given Senna/Docusate Sodium (Senokot-S, Soha-Colace) 2 tablet PO DAILY [facility] Last Admin: 03/16/18 10:29 Dose: 2 tablet Tamsulosin HCl (Flomax) 0.4 mg PO DAILY [facility] Last Admin: 03/16/18 10:28 Dose: 0.4 mg Medical Necessity - Tobacco Use Smoking Status: Never smoker Assessment/Plan Debility 2/2 central cord syndrome, and a Left femur fracture. Goal of rehab is pentecostal of prior level of functional independence. Plan: - Physical therapy for gait and balance - Occupational Therapy for ADLs - As needed analgesics - Bowel protocol - DVT prophylaxis: Lovenox, SCD on right leg only - HLD - Currently not on medication - HTN - stable => continue home medications of lisinopril - Left femur fracture - Maintain knee immobilizer at all times. - Urine retention, failed voiding trail at OSH transferred to [facility] with Khan in place. Remove per admission orders with voiding trial x 2 weeks. => Khan removed, voided with difficulty, 33cc residual noted after void. - Central Cord syndrome - maintain [place] J collar at all times
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
[2018-03-16 20:31] VITALS: BP 123/77; PULSE 71; RESP 16; TEMP 36.5; O2SAT 96
[2018-03-17] MEDS: Acetaminophen 500 MG Tablet 1000 MG PO ×3 (06:40→21:48)
[2018-03-17] MEDS: Enoxaparin 40 MG/0.4 ML Syringe SC (06:40)
[2018-03-17 08:36] VITALS: BP 129/77; PULSE 83; RESP 16; TEMP 36.6; O2SAT 98
[2018-03-17] MEDS: Lisinopril 10 MG Tablet PO (10:56)
[2018-03-17] MEDS: Senna/Docusate Sodium 1 Tablet 2 TABLET PO (10:56)
[2018-03-17] MEDS: Methocarbamol 500 MG Tablet 1000 MG PO ×4 (10:56→20:17)
[2018-03-17] MEDS: Tamsulosin HCl 0.4 MG Capsule PO (10:56)
[2018-03-17 19:47] VITALS: BP 122/75; PULSE 89; RESP 16; TEMP 36.7; O2SAT 98
[2018-03-17] MEDS: Ibuprofen 400 MG Tablet PO (20:12)
[2018-03-18] MEDS: Acetaminophen 500 MG Tablet 1000 MG PO (06:31)
[2018-03-18] MEDS: Enoxaparin 40 MG/0.4 ML Syringe SC (06:31)
[2018-03-18 06:59] VITALS: BP 115/70; PULSE 88; RESP 16; TEMP 36.7; O2SAT 96
[2018-03-18] MEDS: Lisinopril 10 MG Tablet PO (10:49)
[2018-03-18] MEDS: Senna/Docusate Sodium 1 Tablet 2 TABLET PO (10:49)
[2018-03-18] MEDS: Methocarbamol 500 MG Tablet 1000 MG PO ×3 (10:50→17:57)
[2018-03-18] MEDS: Tamsulosin HCl 0.4 MG Capsule PO (10:50)
[2018-03-18] MEDS: Ibuprofen 400 MG Tablet PO (14:26)
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
[2018-03-18 18:25] VITALS: BP 95/73; PULSE 105; RESP 16; TEMP 36.6; O2SAT 97
--- NOTE | 2018-03-18 18:51 | NURSING ---
Pt. transferring w/o neck brace on, this RN reminded pt to put neck brace on pt refused.
--- NOTE | 2018-03-18 20:58 | NURSING ---
Pt asked nurse could assist pt with applying neck brace that is on bedside table next to pt. Pt declined and stated if he wants it on, it's within his reach to apply it. Nurse urged pt re: orders for neck brace but pt declined again.
--- NOTE | 2018-03-18 22:52 | NURSING ---
Pt refused Robaxin and Tylenol 2200 dose. Pt had upset stomach earlier in the evening and stated he just didn't want the meds tonight.
[2018-03-19] MEDS: Acetaminophen 500 MG Tablet 1000 MG PO (05:40)
[2018-03-19] MEDS: Enoxaparin 40 MG/0.4 ML Syringe SC (05:40)
[2018-03-19 06:57] VITALS: BP 137/80; PULSE 85; RESP 18; TEMP 36.5; O2SAT 98
[2018-03-19] MEDS: Ibuprofen 400 MG Tablet PO ×2 (08:31→18:10)
[2018-03-19] MEDS: Methocarbamol 500 MG Tablet 1000 MG PO ×4 (09:55→21:35)
[2018-03-19] MEDS: Lisinopril 10 MG Tablet PO (09:55)
[2018-03-19] MEDS: Tamsulosin HCl 0.4 MG Capsule PO (09:55)
--- NOTE | 2018-03-19 09:55 | CASEMGMT ---
Team meeting held. Patient present, no support person present. Patient declining for this social service assistant to contact anyone in regards to team meeting. Collaborating with team, discharge date set for 03/23/18. Patient plans to discharge to home with girlfriend. Patient girlfriend is currently on a holiday break with work and able to be with patient as needed within the home during this break. Patient discussing further with therapy on whether or not to begin therapy at this time, will follow up on this. Patient reporting to need a wheelchair and bilateral platform attachments for walker. Patient does not have a preference of durable medical equipment, [employer] to be utilized. Patient girlfriend to provide transportation home for patient at time of discharge. Support given. Telephone call to Manda Muñiz. This social service assistant making referral for bilateral platform attachments for walker as well as a wheelchair. Order faxed. Antonino to have equipment delivered to patient room prior to patient discharge. Proposed discharge date: 03/23/18 PLAN: Discharge to home with girlfriend. ANGLE Alvarado, [employer]
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
--- NOTE | 2018-03-19 12:18 | PN.NEURO_ITS ---
Subjective: Staffed in team meeting. Family was not at bedside, patients questions were addressed an answered. With Physical therapy, he is supervision to get to the edge of the bed. He is MOD I for mobility with the wheelchair. He is able to walk about 35 to 53 feet using the platform walker with contact guard to minimal assist. over the next few days will work on going up and down steps. With Occupational therapy, he is supervision for bathing, toileting and grooming. 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 On admission his right hand was 23 and his left was 27 now his right hand is 58, and his left hand is 52. With nursing his vital signs are stable, his pain is well controlled he is off the fentanyl patch and the Oxy IR. he is only taking Motrin for pain and discomfort. Family training is scheduled for Wednesday 03/21 with plans for discharge on Friday 03/23 home with home exercises until he follows up with his Neurosurgeon concerning his central cord syndrome, and his orthopedic doctor concerning his left femur fracture. - Physical Exam General: Alert, Oriented x3, Cooperative HEENT: Atraumatic, PERRLA, EOMI, Normocephalic Neck: Supple, No JVD, Negative Carotid Bruits Lungs: Clear to auscultation, Normal air movement Cardiovascular: Regular rate, No murmurs Abdomen: Bowel Sounds Present, Soft, Non Tender Extremities: No edema, Capillary Refill Less than 3 Seconds Skin: No rashes, No breakdown Musculoskeletal: No Tenderness to Palpation of Joints or Extremities Neurological: Cranial nerves II-XII grossly intact Psych/Mental Status: Normal Affect, Appropriate, Alert and oriented to time, place, person, mood and affect Vital Signs Temp Pulse Resp BP Pulse Ox 97.7 F L 85 18 137/80 H 98 03/19/18 06:57 03/19/18 06:57 03/19/18 06:57 03/19/18 06:57 03/19/18 06:57 Oxygen Delivery Method Room Air Weight: 87 kg Body Mass Index (BMI) 26.0 Intake and Output for Last 24 Hours 03/17/18 03/18/18 03/19/18 23:59 23:59 23:59 Intake Total 860 / 860 1180 / 1180 520 / 520 Output Total 1400 / 1400 450 / 450 Balance 860 / 860 -220 / -220 70 / 70 Active Medications Al Hydroxide/Mg Hydroxide (Mylanta Ii) 30 ml PO Q6H PRN PRN PRN Reason: INDIGESTION Bisacodyl (Dulcolax) 10 mg RECTAL .PRN X 1 PRN PRN Reason: Constipation Enoxaparin Sodium (Lovenox) 40 mg SC DAILY@0600 [facility] Last Admin: 03/19/18 05:40 Dose: 40 mg Ibuprofen (Motrin) 400 mg PO Q6H PRN PRN PRN Reason: MILD PAIN (1-3/10) Last Admin: 03/19/18 08:31 Dose: 400 mg Lisinopril (Zestril) 10 mg PO DAILY [facility] Last Admin: 03/19/18 09:55 Dose: 10 mg Magnesium Hydroxide (Milk Of Magnesia) 30 ml PO .PRN X 1 PRN PRN Reason: Constipation Last Admin: 03/08/18 05:13 Dose: 30 ml Melatonin (Melatonin) 5 mg PO QHS [facility] Methocarbamol (Robaxin) 1,000 mg PO 4X/DAY [facility] Last Admin: 03/19/18 09:55 Dose: 1,000 mg Oxycodone HCl (Oxyir) 5 - 10 mg PO Q4H PRN PRN PRN Reason: PAIN Last Admin: 03/10/18 05:15 Dose: 10 mg Polyethylene Glycol (Miralax) 17 gm PO BID [facility] Last Admin: 03/19/18 08:51 Dose: Not Given Senna/Docusate Sodium (Senokot-S, Soha-Colace) 2 tablet PO DAILY [facility] Last Admin: 03/19/18 08:51 Dose: Not Given Tamsulosin HCl (Flomax) 0.4 mg PO DAILY [facility] Last Admin: 03/19/18 09:55 Dose: 0.4 mg Medical Necessity - Tobacco Use Smoking Status: Never smoker Assessment/Plan Debility 2/2 central cord syndrome, and a Left femur fracture. Goal of rehab is buddhist of prior level of functional independence. Plan: - Physical therapy for gait and balance - Occupational Therapy for ADLs - As needed analgesics - Bowel protocol - DVT prophylaxis: Lovenox, SCD on right leg only - HLD - Currently not on medication - HTN - stable => continue home medications of lisinopril - Left femur fracture - Maintain knee immobilizer at all times. - Urine retention, failed voiding trail at OSH transferred to [facility] with Khan in place. Remove per admission orders with voiding trial x 2 weeks. => Khan removed, voided with difficulty, 33cc residual noted after void. - Central Cord syndrome - maintain [place] J collar at all times - Difficultly sleeping - add low dose of melatonin at HS - D/C all pain medications except for Motrin per patient request
--- NOTE | 2018-03-19 12:42 | CASEMGMT ---
Insurance Clinical information sent. Pending continued stay approval at this time. Auth#[id number] ANGLE Alvarado, SUBASSEMBLY SUPERVISOR
--- NOTE | 2018-03-19 16:34 | CASEMGMT ---
Insurance Continued stay approved with next update due on 03/22/18 and last cover day being 03/22/18. Auth#[id number] ANGLE Alvarado, HISTOLOGICAL ILLUSTRATOR
[2018-03-19 21:25] VITALS: BP 137/77; PULSE 79; RESP 16; TEMP 36.7; O2SAT 100
[2018-03-19] MEDS: MELATONIN 10 MG TABLET 5 MG PO (21:35)
[2018-03-20] MEDS: Ibuprofen 400 MG Tablet PO ×3 (03:36→21:27)
--- NOTE | 2018-03-20 04:18 | NURSING ---
Reviewed and agree with MENTAL HEALTH ORDERLY documentation and FIMs charting.
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
[2018-03-20] MEDS: Enoxaparin 40 MG/0.4 ML Syringe SC (06:32)
--- NOTE | 2018-03-20 07:36 | NURSING ---
pt refused applying neck brace this morning and staff educated pt about risks.
--- NOTE | 2018-03-20 07:41 | NURSING ---
pt refused to wear c-collar as ordered both at hs and am , pt aware or risk and declines to wear
[2018-03-20 10:00] VITALS: BP 134/81; PULSE 86; RESP 16; TEMP 36.6; O2SAT 99
[2018-03-20] MEDS: Lisinopril 10 MG Tablet PO (10:07)
[2018-03-20] MEDS: Methocarbamol 500 MG Tablet 1000 MG PO ×4 (10:07→20:23)
[2018-03-20] MEDS: Tamsulosin HCl 0.4 MG Capsule PO (10:07)
[2018-03-20] MEDS: Senna/Docusate Sodium 1 Tablet 2 TABLET PO (10:08)
--- NOTE | 2018-03-20 17:00 | NURSING ---
Throughout the day this nurse has noted patient has taken off C collar when in bed and he has refused several times to put it back on. Patient reported he does not want to wear it in bed all the time but he will wear it when up. This nurse reviewed current order, he is to wear it at all times but patient still refuses.
[2018-03-20 20:00] VITALS: BP 123/71; PULSE 81; RESP 16; TEMP 36.5; O2SAT 96
[2018-03-20] MEDS: MELATONIN 10 MG TABLET 5 MG PO (21:26)
--- NOTE | 2018-03-21 03:19 | NURSING ---
Reviewed and agree with [employer] documentation and FIMs charting
[2018-03-21] MEDS: Enoxaparin 40 MG/0.4 ML Syringe SC (05:36)
--- NOTE | 2018-03-21 06:33 | NURSING ---
Son, Kirk, called at this time to notify about mother's fall and progress report. No answer and phone rang x12. No answering machine picked up.
[2018-03-21] MEDS: Tamsulosin HCl 0.4 MG Capsule PO (08:13)
[2018-03-21] MEDS: Lisinopril 10 MG Tablet PO (08:14)
[2018-03-21] MEDS: Methocarbamol 500 MG Tablet 1000 MG PO ×4 (08:14→20:30)
[2018-03-21] MEDS: Senna/Docusate Sodium 1 Tablet 2 TABLET PO (08:14)
[2018-03-21 08:44] VITALS: BP 125/69; PULSE 74; RESP 18; TEMP 36.5; O2SAT 95
--- NOTE | 2018-03-21 11:37 | PCM.PN.NEU ---
Subjective: Patient seen resting comfortable in bed. No new complaints, tolerating therapy, was made MOD I today in preparation for discharge home on Monday. He has a follow up appointment with surgeon on Monday morning and they will determine at that time what therapy he will require once his splint is removed. No issue with GI/. Pain is well controlled, currently only requiring Ibuprofen for any pain or discomfort. - Physical Exam General: Alert, Oriented x3, Cooperative HEENT: Atraumatic, PERRLA, EOMI, Normocephalic Neck: Supple, No JVD, Negative Carotid Bruits Lungs: Clear to auscultation, Normal air movement Cardiovascular: Regular rate, No murmurs Abdomen: Bowel Sounds Present, Soft, Non Tender Extremities: No edema, Capillary Refill Less than 3 Seconds Skin: No rashes, No breakdown Musculoskeletal: No Tenderness to Palpation of Joints or Extremities Neurological: Cranial nerves II-XII grossly intact Psych/Mental Status: Normal Affect, Appropriate, Alert and oriented to time, place, person, mood and affect Vital Signs Temp Pulse Resp BP Pulse Ox 97.7 F L 74 18 125/69 H 95 03/21/18 08:44 03/21/18 08:44 03/21/18 08:44 03/21/18 08:44 03/21/18 08:44 Oxygen Delivery Method Room Air Weight: 82.38 kg Body Mass Index (BMI) 26.0 Intake and Output for Last 24 Hours 03/19/18 03/20/18 03/21/18 23:59 23:59 23:59 Intake Total 520 / 520 240 / 240 Output Total 450 / 450 Balance 70 / 70 240 / 240 Active Medications Al Hydroxide/Mg Hydroxide (Mylanta Ii) 30 ml PO Q6H PRN PRN PRN Reason: INDIGESTION Bisacodyl (Dulcolax) 10 mg RECTAL .PRN X 1 PRN PRN Reason: Constipation Enoxaparin Sodium (Lovenox) 40 mg SC DAILY@0600 [facility] Last Admin: 03/21/18 05:36 Dose: 40 mg Ibuprofen (Motrin) 400 mg PO Q6H PRN PRN PRN Reason: MILD PAIN (1-3/10) Last Admin: 03/20/18 21:27 Dose: 400 mg Lisinopril (Zestril) 10 mg PO DAILY [facility] Last Admin: 03/21/18 08:14 Dose: 10 mg Magnesium Hydroxide (Milk Of Magnesia) 30 ml PO .PRN X 1 PRN PRN Reason: Constipation Last Admin: 03/08/18 05:13 Dose: 30 ml Melatonin (Melatonin) 5 mg PO QHS [facility] Last Admin: 03/20/18 21:26 Dose: 5 mg Methocarbamol (Robaxin) 1,000 mg PO 4X/DAY [facility] Last Admin: 03/21/18 08:14 Dose: 1,000 mg Oxycodone HCl (Oxyir) 5 - 10 mg PO Q4H PRN PRN PRN Reason: PAIN Last Admin: 03/10/18 05:15 Dose: 10 mg Polyethylene Glycol (Miralax) 17 gm PO BID [facility] Last Admin: 03/21/18 08:14 Dose: Not Given Senna/Docusate Sodium (Senokot-S, Soha-Colace) 2 tablet PO DAILY [facility] Last Admin: 03/21/18 08:14 Dose: 1 tablet Tamsulosin HCl (Flomax) 0.4 mg PO DAILY [facility] Last Admin: 03/21/18 08:13 Dose: 0.4 mg Medical Necessity - Tobacco Use Smoking Status: Never smoker Assessment/Plan Debility 2/2 central cord syndrome, and a Left femur fracture. Goal of rehab is oriental orthodox of prior level of functional independence. Plan: - Physical therapy for gait and balance - Occupational Therapy for ADLs - As needed analgesics - Bowel protocol - DVT prophylaxis: Lovenox, SCD on right leg only - HLD - Currently not on medication - HTN - stable => continue home medications of lisinopril - Left femur fracture - Maintain knee immobilizer at all times. - Urine retention, failed voiding trail at OSH transferred to [facility] with Khan in place. Remove per admission orders with voiding trial x 2 weeks. => Khan removed, voided with difficulty, 33cc residual noted after void. - Central Cord syndrome - maintain [place] J collar at all times - Difficultly sleeping - add low dose of melatonin at HS - D/C all pain medications except for Motrin per patient request - MOD I today in preparation for discharge home on Friday 03/23 - Follow up appointment with Surgeon on Monday
--- NOTE | 2018-03-21 11:42 | PN.NEURO_ITS ---
Subjective: Patient seen resting comfortable in bed. No new complaints, tolerating therapy, was made MOD I today in preparation for discharge home on Monday. He has a follow up appointment with surgeon on Monday morning and they will determine at that time what therapy he will require once his splint is removed. No issue with GI/. Pain is well controlled, currently only requiring Ibuprofen for any pain or discomfort. - Physical Exam General: Alert, Oriented x3, Cooperative HEENT: Atraumatic, PERRLA, EOMI, Normocephalic Neck: Supple, No JVD, Negative Carotid Bruits Lungs: Clear to auscultation, Normal air movement Cardiovascular: Regular rate, No murmurs Abdomen: Bowel Sounds Present, Soft, Non Tender Extremities: No edema, Capillary Refill Less than 3 Seconds Skin: No rashes, No breakdown Musculoskeletal: No Tenderness to Palpation of Joints or Extremities Neurological: Cranial nerves II-XII grossly intact Psych/Mental Status: Normal Affect, Appropriate, Alert and oriented to time, place, person, mood and affect Vital Signs Temp Pulse Resp BP Pulse Ox 97.7 F L 74 18 125/69 H 95 03/21/18 08:44 03/21/18 08:44 03/21/18 08:44 03/21/18 08:44 03/21/18 08:44 Oxygen Delivery Method Room Air Weight: 82.38 kg Body Mass Index (BMI) 26.0 Intake and Output for Last 24 Hours 03/19/18 03/20/18 03/21/18 23:59 23:59 23:59 Intake Total 520 / 520 240 / 240 Output Total 450 / 450 Balance 70 / 70 240 / 240 Active Medications Al Hydroxide/Mg Hydroxide (Mylanta Ii) 30 ml PO Q6H PRN PRN PRN Reason: INDIGESTION Bisacodyl (Dulcolax) 10 mg RECTAL .PRN X 1 PRN PRN Reason: Constipation Enoxaparin Sodium (Lovenox) 40 mg SC DAILY@0600 [facility] Last Admin: 03/21/18 05:36 Dose: 40 mg Ibuprofen (Motrin) 400 mg PO Q6H PRN PRN PRN Reason: MILD PAIN (1-3/10) Last Admin: 03/20/18 21:27 Dose: 400 mg Lisinopril (Zestril) 10 mg PO DAILY [facility] Last Admin: 03/21/18 08:14 Dose: 10 mg Magnesium Hydroxide (Milk Of Magnesia) 30 ml PO .PRN X 1 PRN PRN Reason: Constipation Last Admin: 03/08/18 05:13 Dose: 30 ml Melatonin (Melatonin) 5 mg PO QHS [facility] Last Admin: 03/20/18 21:26 Dose: 5 mg Methocarbamol (Robaxin) 1,000 mg PO 4X/DAY [facility] Last Admin: 03/21/18 08:14 Dose: 1,000 mg Oxycodone HCl (Oxyir) 5 - 10 mg PO Q4H PRN PRN PRN Reason: PAIN Last Admin: 03/10/18 05:15 Dose: 10 mg Polyethylene Glycol (Miralax) 17 gm PO BID [facility] Last Admin: 03/21/18 08:14 Dose: Not Given Senna/Docusate Sodium (Senokot-S, Soha-Colace) 2 tablet PO DAILY [facility] Last Admin: 03/21/18 08:14 Dose: 1 tablet Tamsulosin HCl (Flomax) 0.4 mg PO DAILY [facility] Last Admin: 03/21/18 08:13 Dose: 0.4 mg Medical Necessity - Tobacco Use Smoking Status: Never smoker Assessment/Plan Debility 2/2 central cord syndrome, and a Left femur fracture. Goal of rehab is quaker of prior level of functional independence. Plan: - Physical therapy for gait and balance - Occupational Therapy for ADLs - As needed analgesics - Bowel protocol - DVT prophylaxis: Lovenox, SCD on right leg only - HLD - Currently not on medication - HTN - stable => continue home medications of lisinopril - Left femur fracture - Maintain knee immobilizer at all times. - Urine retention, failed voiding trail at OSH transferred to [facility] with Khan in place. Remove per admission orders with voiding trial x 2 weeks. => Khan removed, voided with difficulty, 33cc residual noted after void. - Central Cord syndrome - maintain [place] J collar at all times - Difficultly sleeping - add low dose of melatonin at HS - D/C all pain medications except for Motrin per patient request - MOD I today in preparation for discharge home on Friday 03/23 - Follow up appointment with Surgeon on Monday
[2018-03-21] MEDS: Ibuprofen 400 MG Tablet PO ×2 (14:32→20:41)
[2018-03-21] MEDS: MELATONIN 10 MG TABLET 5 MG PO (20:30)
--- NOTE | 2018-03-21 21:00 | NURSING ---
pt noted without c collar on at this time. pt reminded that he is to have collar on at all times. pt refused and stated he doesn't need to wear it while in bed. RN aware. will continue to monitor.
[2018-03-21 22:00] VITALS: BP 128/72; PULSE 78; RESP 16; TEMP 36.6; O2SAT 96
--- NOTE | 2018-03-22 02:02 | NURSING ---
REVIEWED AND AGREE WITH [employer] FIM AND HANDOFF CHARTING.
[2018-03-22] MEDS: Enoxaparin 40 MG/0.4 ML Syringe SC (06:53)
[2018-03-22] MEDS: Lisinopril 10 MG Tablet PO (09:28)
[2018-03-22] MEDS: Tamsulosin HCl 0.4 MG Capsule PO (09:28)
[2018-03-22] MEDS: Methocarbamol 500 MG Tablet 1000 MG PO ×4 (09:28→21:48)
[2018-03-22] MEDS: Senna/Docusate Sodium 1 Tablet 2 TABLET PO (09:28)
[2018-03-22] MEDS: Ibuprofen 400 MG Tablet PO ×2 (09:43→21:48)
[2018-03-22 09:45] VITALS: BP 132/78; PULSE 73; RESP 16; TEMP 36.3; O2SAT 97
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
--- NOTE | 2018-03-22 10:55 | DCINST_ITS ---
- Discharge Diagnoses Reason(s) for Visit for Discharge Instructions: Central cord syndrome You will use the following diet at home:: Regular Your food should be the consistency of: Regular Your liquids should be the consistency of: Regular/Thin Discharge Activity: May Not Drive - until cleared by Neurosurgeon, May Shower - Remove leg immobizer , Use Walker Weight Bearing Status: Weight bearing as tolerated Call your doctor if you observe: Fever of 101 or Higher, Coldness, Increased Pain, Numbness or Tingling, Change in Color, Inability to urinate, Inability to have a bowel movement, Using more than one pad per hour, Shortness of breath, Dizziness, Fainting spells, Swelling in the ankles, Chest pain, Prolonged hiccoughing, Increased palpitations (irregular heartbeat), Calf discomfort, Un controlled pain Allergies/Adverse Reactions: Allergies No Known Allergies Allergy (Verified 03/01/18 09:13) Medications to take at Discharge Lisinopril [Zestril] 10 mg PO DAILY 03/01/18 Ibuprofen [Motrin] 400 mg PO Q6H PRN PRN tablet 03/22/18 Melatonin 5 mg PO QHS tablet 03/22/18 Methocarbamol [Robaxin] 1,000 mg PO 4X/DAY #120 tab 03/22/18 Tamsulosin HCl [Flomax] 0.4 mg PO DAILY #30 cap 03/22/18 The following prescriptions were given: Tamsulosin HCl [Flomax] 0.4 mg PO DAILY #30 cap Methocarbamol [Robaxin] 1,000 mg PO 4X/DAY #120 tab Primary Care Physician: Kyler Mckeon MD [Primary Care Provider] - Test Results: Test results from this visit will be discussed in further detail at your follow- up appointment, if applicable. Please Follow Up With: [facility] Please Follow Up With: Floyd Easley MD Please Follow Up With: Primary Care Physician Proposed Discharge Date: 03/23/18
--- NOTE | 2018-03-22 11:06 | RAD_ITS ---
STUDY: X-RAY - LEFT KNEE REASON FOR EXAM: Male, 58 years old. Injury. TECHNIQUE: 2 portable view(s) of the knee. COMPARISON: 2 views of the left knee March 14, 2018 FINDINGS: Again seen is the nondisplaced curvilinear fracture line through the distal femoral metadiaphysis, exiting through the lateral side of the intercondylar notch. There is stable mild spurring of the medial tibial plateau and tibial spines. Normal visualized proximal fibula. Cortical spurring again seen at the patellar insertion of the quadriceps tendon. There is stable degenerative arthrosis of the medial femorotibial compartment with moderate joint space narrowing. Normal lateral femorotibial compartment. There is borderline to mild degenerative arthrosis of the patellofemoral articulation. Normal proximal tibiofibular articulation. There is no significant joint effusion. The soft tissue structures are unremarkable. RAD/Knee 1 or 2 Views IMPRESSION: Stable nondisplaced linear fracture of the distal femoral metadiaphysis. Degenerative changes of the knee also unchanged. Electronically Signed: Riley Best MD at 13:36 EST , Service support ,
--- NOTE | 2018-03-22 12:12 | CASEMGMT ---
Social Work Spoke with patient in room. This transition social worker communicating that occupational therapy is recommending for patient to continue with services after discharge thought outpatient care. Patient is agreeable to recommendation and requesting for outpatient occupational therapy to be set up through [facility]. Patient aware that order will be faxed to [facility] and then [facility] will contact patient to set up appointment. Patient equipment to be delivered to patient room this afternoon through [employer]. Patient significant other plans to provide transportation home for patient at time of discharge. Support given. Order for outpatient occupational therapy faxed to [facility]. [facility] to contact patient to set up appointment. Proposed discharge date: 03/23/18 PLAN: Discharge to home with significant other and outpatient occupational therapy. ANGLE Alvarado, ICE SKATING TEACHER
--- NOTE | 2018-03-22 18:44 | NURSING ---
Went over DC instructions, medication and PCP appt. Answered all questions. Pt. will set up ortho appt after discharge d/t pt is switching insurance companies. This RN cancelled Dr Floyd De Anda appt on 03/29/18 per pt request tried to set up in appt. with Dr. Dharmesh Odonnell however Doctor was out of pt's network, and needed financial clearance through pt. Pt aware and will set up appt after discharge d/t insurance changing.
[2018-03-22 18:47] VITALS: BP 136/75; PULSE 78; RESP 16; TEMP 36.5; O2SAT 96
[2018-03-22] MEDS: MELATONIN 10 MG TABLET 5 MG PO (21:47)
--- NOTE | 2018-03-23 01:04 | NURSING ---
REVIEWED AND AGREE WITH REGIONAL ACCOUNT DIRECTOR'S FIM AND HANDOFF CHARTING.
[2018-03-23 07:35] VITALS: BP 131/73; PULSE 80; RESP 16; TEMP 36.6; O2SAT 97
[2018-03-23] MEDS: Senna/Docusate Sodium 1 Tablet 2 TABLET PO (07:45)
[2018-03-23] MEDS: Methocarbamol 500 MG Tablet 1000 MG PO (07:45)
[2018-03-23] MEDS: Lisinopril 10 MG Tablet PO (07:45)
[2018-03-23] MEDS: Tamsulosin HCl 0.4 MG Capsule PO (07:45)
[2018-03-23] MEDS: Ibuprofen 400 MG Tablet PO (07:51)
[2018-03-23 08:40] VITALS: BP 131/73; PULSE 80; RESP 16; TEMP 36.6; O2SAT 97
--- NOTE | 2018-03-23 08:40 | NURSING ---
Discharge instructions given to patient and verbalized understanding.
--- NOTE | 2018-03-23 14:07 | CASEMGMT ---
Social Work Notified insurance of patient discharge on 03/23/18 to home with significant other. Auth#[id number] ANGLE Alvarado, INTERIOR DESIGN PROGRAM CHAIR
== END 2018-03-23 08:40 | disposition home or self-care (01) | DRG 561 ==
PROVIDERS: Nurse Practitioner Acute Care; Admitting Provider Psychiatry & Neurology Neurology; Family Provider Family Medicine; PCP Family Medicine; Referring Provider Psychiatry & Neurology Neurology; Visit Provider Internal Medicine
DX: S72.402D Unspecified fracture of lower end of left femur, subsequent encounter for closed fracture with routine healing (principal); V49.40XD Driver injured in collision with unspecified motor vehicles in traffic accident, subsequent encounter; S14.129D Central cord syndrome at unspecified level of cervical spinal cord, subsequent encounter; I10 Essential (primary) hypertension; E78.5 Hyperlipidemia, unspecified; N40.1 Benign prostatic hyperplasia with lower urinary tract symptoms; R33.8 Other retention of urine
CPT/HCPCS: 36415; 73560; 80053; 83735; 84100; 85027; 92523; 97110; 97116; 97140; 97162; 97166; 97530; 97535; 97802